=== PATIENT | male | born 1960 | race Caucasian/White ===

== ENCOUNTER 2018-08-29 10:52 | Outpatient (CLI) | payer OTHER ==
[2018-08-29] MEDS ORDERED: Iopamidol 370 76% 100 ML VIAL ONE (11:31)
--- NOTE | 2018-08-29 11:45 | CT ---
CT abdomen and pelvis with IV contrast. Oral contrast was administered. INDICATIONS: Anterior abdominal wall hernia COMPARISON: None FINDINGS: There is a pleural-based nodular density in the lateral right lung base measuring 1.0 cm. This may re present pleural-based atelectasis however follow-up is recommended. Liver, spleen, and pancreas appear unremarkable. Small gallstone seen in the neck of the gallbladder. There is a small fixed sliding diaphragmatic hernia. Adrenal glands appear normal. Kidneys appear unremarkable. Collecting structures and urinary bladder appear unremarkable. Small bowel loops are normal caliber and exhibit normal fold pattern. Colon is unremarkable. Aorta is normal caliber. No evidence of retroperitoneal or mesenteric adenopathy. Pelvic structures appear unremarkable. There is a large anterior abdominal wall hernia. Anterior abdominal wall defect measures 10 cm width. Large hernia sac into the subcutaneous tissues measures 24 cm width. Small bowel, large bowel, and mesentery herniate through this defect. There is no evidence of bowel obstruction or strangulation. There is a right inguinal hernia with dilated right inguinal ring. Mesenteric fat herniates into the right inguinal canal Osseous structures appear unremarkable. IMPRESSION: 1. Large anterior abdominal wall hernia as described 2. Small fixed sliding diaphragmatic hernia 3. Pleural-based nodular density in the right lung base, probably pleural based atelectasis. Follow-u p recommended. 4. Cholelithiasis 5. Right inguinal hernia
[2018-08-29 12:24] LABS: #Basophils 0.1 thou/uL (0.0-0.2); #Eosinphils 0.3 thou/uL (0.0-0.7); #Monocytes 0.4 thou/uL (0.11-0.59); #Neutrophils 2.7 thou/uL (1.40-6.50); %Eosinophils 5.6 % (0.0-10.0); %Lymphocytes 36.7 % (21.0-51.0); %Monocytes 7.2 % (0.0-10.0); %Neutrophils 49.6 % (42.0-75.0); Hemoglobin 13.4 g/dL (14.0-18.0); Mean Corpuscular HGB CONC 33.4 g/dL (32.0-36.0); Mean Corpuscular Hemoglobin 29.9 pg (27.0-31.0); Mean Corpuscular Volume 89.7 fL (78.0-98.0); Mean Platelet Volume 6.8 fL (7.4-10.4); Platelet Count 202 thou/uL (130-400); RBC Distribution Width 11.8 % (11.5-14.5); Red Blood Cell (RBC) Count 4.48 mill/uL (4.70-6.10); White Blood Cell (WBC) Count 5.4 thou/uL (4.8-10.8)
[2018-08-29 12:43] LABS: Anion Gap 10 mmol/L (10-20); BUN (Urea Nitrogen) 9 mg/dL (8.4-25.7); Calc. Creatinine Clearance 0 mL/min (70-130); Calcium 8.8 mg/dL (7.8-10.44); Carbon Dioxide 27 mmol/L (22-29); Chloride 102 mmol/L (98-107); Estimated GFR-MDRD Greater than 90; Glucose 95 mg/dL (70-105); Sodium 135 mmol/L (136-145)
== END 2018-08-29 10:53 | disposition home or self-care (01) ==
LOC: CT 10:52
PROVIDERS: ATTEND Specialist
DX: Z01.818 Encounter for other preprocedural examination (principal); K43.2 Incisional hernia without obstruction or gangrene; K43.9 Ventral hernia without obstruction or gangrene; K44.9 Diaphragmatic hernia without obstruction or gangrene; K40.90 Unilateral inguinal hernia, without obstruction or gangrene, not specified as recurrent; K80.20 Calculus of gallbladder without cholecystitis without obstruction; R91.1 Solitary pulmonary nodule
CPT/HCPCS: 36415; 74177; 80048; 85025; 93005; 93010

== ENCOUNTER 2018-09-04 16:21 | Observation (INO) | payer OTHER ==
[~2018-09-04 16:21] MED LIST: ISOVUE-370 76%-LOCM 1 ML ONE
[2018-09-04] MEDS ORDERED: cefTRIAXone\\ROCEPHIN 1 GM VIAL ONE ×2 (19:14)
[2018-09-04 19:37] LABS: #Basophils 0.1 thou/uL (0.0-0.2); #Eosinphils 0.2 thou/uL (0.0-0.7); #Lymphocytes 2.1 thou/uL (1.20-3.40); #Monocytes 0.6 thou/uL (0.11-0.59); #Neutrophils 4.9 thou/uL (1.40-6.50); %Basophils 0.7 % (0.0-1.0); %Eosinophils 2.3 % (0.0-10.0); %Lymphocytes 26.8 % (21.0-51.0); %Monocytes 7.4 % (0.0-10.0); %Neutrophils 62.9 % (42.0-75.0); Hemoglobin 13.9 g/dL (14.0-18.0); Mean Corpuscular HGB CONC 33.9 g/dL (32.0-36.0); Mean Corpuscular Hemoglobin 30.2 pg (27.0-31.0); Mean Corpuscular Volume 89.1 fL (78.0-98.0); Platelet Count 194 thou/uL (130-400); RBC Distribution Width 11.9 % (11.5-14.5); Red Blood Cell (RBC) Count 4.59 mill/uL (4.70-6.10); White Blood Cell (WBC) Count 7.7 thou/uL (4.8-10.8)
[2018-09-04 20:05] LABS: ALT (SGPT) 17 U/L (8-55); AST (SGOT) 9 U/L (5-34); Alkaline Phosphatase 125 U/L (40-150); Anion Gap 14 mmol/L (10-20); BUN (Urea Nitrogen) 9 mg/dL (8.4-25.7); Calc. Creatinine Clearance 0 mL/min (70-130); Calcium 9.3 mg/dL (7.8-10.44); Carbon Dioxide 26 mmol/L (22-29); Chloride 101 mmol/L (98-107); Estimated GFR-MDRD Greater than 90; Globulin 3.1 g/dL (2.4-3.5); Glucose 96 mg/dL (70-105); Lipase 6 U/L (8-78); Potassium 3.6 mmol/L (3.5-5.1); Protein, Total 7.1 g/dL (6.0-8.3); Sodium 137 mmol/L (136-145)
--- NOTE | 2018-09-04 20:43 | CT ---
CONTRAST ENHANCED CT IMAGES OF ABDOMEN AND PELVIS: HISTORY: Abdominal pain. IV contrast was given. Unfortunately, oral contrast was not administered. FINDINGS: The lung bases are unremarkable. There is a small hiatal hernia. There is a large right inguinal hernia which is fat in density without evidence of bowel herniation. Again, a large anterior abdominal wall hernia is seen with intraperitoneal fat, small bowel and colon herniating through the large anterior hernia. This is not significantly changed since the previous exam from 6 days earlier. Some of the small bowel loops appear to have air-fluid levels within them at this time. This may repr esent normal small bowel content versus possible obstruction. Surgical kevyn seen in the sigmorectal junction. IMPRESSION: Large anterior abdominal wall hernia without definite evidence of strangulation. The small bowel and colonic loops which are herniated through this defect appear to be of normal diameter. Some intraperitoneal mildly dilated loops of small bowel are present. Transcribed Date/Time: 09/04/2018 9:23 PM
--- NOTE | 2018-09-04 21:39 | RAD ---
2 views left forearm. HISTORY: Pain evaluate for foreign body AP and lateral views left forearm obtained. No evidence of fractures, subluxations or bony lesions seen. IMPRESSION: normal 2 views left forearm.
[2018-09-04] MEDS ORDERED: Acetaminophen 650 MG Suppository PR PRN (21:56)
[2018-09-04] MEDS ORDERED: Ondansetron PF 4 MG/2 ML Vial IVP PRN (21:56)
[2018-09-04] MEDS ORDERED: Ondansetron ODT 4 MG TAB PO PRN (21:56)
[2018-09-04] MEDS ORDERED: Acetaminophen 325 MG TAB PO PRN (21:56)
[2018-09-04] MEDS ORDERED: Sodium Chloride 0.9% 1,000 ML IV SCH (22:15)
[2018-09-04 22:34] VITALS: BMI 34.5
[2018-09-04] MEDS: Morphine ER 15 MG TAB PO PRN (23:45)
[2018-09-04] MEDS: Piperacillin/Tazobactam 3.375 GM in Sodium Chloride 0.9% 100 ML IVPB SCH (23:50)
[2018-09-05] MEDS: Piperacillin/Tazobactam 3.375 GM in Sodium Chloride 0.9% 100 ML IVPB SCH ×2 (05:00→12:00)
[2018-09-05] MEDS ORDERED: Vancomycin HCl 1.75 GM in Sodium Chloride 0.9% 500 ML IVPB SCH (06:00)
[2018-09-05 06:20] LABS: Anion Gap 12 mmol/L (10-20); BUN (Urea Nitrogen) 7 mg/dL (8.4-25.7); Calc. Creatinine Clearance 175 mL/min (70-130); Calcium 8.4 mg/dL (7.8-10.44); Carbon Dioxide 22 mmol/L (22-29); Chloride 107 mmol/L (98-107); Estimated GFR-MDRD Greater than 90; Glucose 78 mg/dL (70-105); Potassium 3.8 mmol/L (3.5-5.1); Sodium 137 mmol/L (136-145)
[2018-09-05 06:29] LABS: Eosinophils 5 % (0-10); Hemoglobin 12.3 g/dL (14.0-18.0); Lymphocytes 43 % (21-51); MDiff Complete? YES; Mean Corpuscular HGB CONC 32.8 g/dL (32.0-36.0); Mean Corpuscular Hemoglobin 30.5 pg (27.0-31.0); Mean Corpuscular Volume 92.8 fL (78.0-98.0); Mean Platelet Volume 7.3 fL (7.4-10.4); Monocytes 6 % (0-10); Neutrophil 46 % (42-75); Platelet Count 186 thou/uL (130-400); RBC Distribution Width 12.1 % (11.5-14.5); Red Blood Cell (RBC) Count 4.02 mill/uL (4.70-6.10); White Blood Cell (WBC) Count 5.4 thou/uL (4.8-10.8)
[2018-09-05] MEDS: Morphine ER 15 MG TAB PO PRN ×2 (08:17→13:10)
--- NOTE | 2018-09-05 08:27 | HP ---
PRIMARY CARE DOCTOR: Dilip James MD CODE STATUS: Full code. TIME OF EVALUATION: 0930 hours. CHIEF COMPLAINT: Left arm swelling and abdominal pain. HISTORY OF PRESENT ILLNESS: This is a 57-year-old male patient with past medical history of abdominal hernia repair, came to the hospital after having swelling of his left upper arm after having a scratch from his dogs 7 days ago. The patient reported that he was doing well, but for the past 2 to 3 days he has been noticing that he has swelling in the left upper arm and redness, who reported having no fever although his arm was warm. He also has abdominal distention and tumor of the abdominal wall that is about . This is due to previous incisional hernia the patient has seen Dr. Tomas before as outpatient, had some plan on seeing him this Tuesday, but he has too much pain that he decided to come to the hospital for that reason. CAT scan was done which shows some small bowel loop dilation, possible initial stage of small bowel obstruction. Dr. Tomas is being consulted from ER, we will follow recommendations. We will also do a CAT scan of the left arm to rule out any abscess. The patient reported that he saw a collection of pus in the deep space of his skin. For now, we will cover with antibiotics. Symptoms were reported as moderate. No alleviating factors. REVIEW OF SYSTEMS: CONSTITUTIONAL: No fever, chills, or generalized weakness. RESPIRATORY: No cough, sputum production, or shortness of breath. CARDIOVASCULAR: No chest pain or palpitation. GASTROINTESTINAL: No nausea. No vomiting or diarrhea. The patient has no abdominal pain, abdominal distention. Abdominal wall tumor as described in HPI. BAG PATCHER: No dizziness, headache, or feeling lightheaded. GENITOURINARY: No burning on urination. EXTREMITIES: The patient has a left upper arm swelling with redness, increase of local temperature, decreased range of motion due to symptoms. PAST MEDICAL HISTORY: As mentioned in the HPI. PAST SURGICAL HISTORY: The patient has left ankle surgery, disk fusion in the back, surgical history of appendectomy, hernia repair, mesh repair of the same x3, bowel resection surgery, appendectomy, left hand and left arm surgeries for muscle detachment. PSYCHIATRIC HISTORY: No previous psych history. SOCIAL HISTORY: The patient is a former heroin abuser, abused methamphetamine. Former cigarette smoker, quit in 2018. Lives at home with his spouse. KNOWN ALLERGIES: Mustard oil. REPORTED MEDICATIONS: 1. . 2. ProAir HFA. 3. Morphine. 4. Tylenol with Codeine. 5. . 6. Flexeril. PHYSICAL EXAMINATION: VITAL SIGNS: On presentation, blood pressure 120/79 with heart rate 81, respiratory rate was 16, temperature 98.8, pain was 5, oxygen saturation 98% on room air. GENERAL APPEARANCE: The patient is alert, oriented, not in acute distress. HEENT: Eyes, normal conjunctivae. Moist oral mucosa. Anicteric. No JVD. RESPIRATORY: Bilateral air entry. No rales. No wheezes. Symmetric expansion. CARDIOVASCULAR: Normal rate, regular rhythm. No murmurs. No gallop. No edema. ABDOMEN: The patient has a distended abdomen with abdominal wall tumor of about diameter. It is soft with bowel sounds inside. MUSCULOSKELETAL: Baseline range of motion and strength. No tenderness. SKIN: Warm and intact. No pallor. No rash. No redness except for left upper extremity. EXTREMITIES: The patient has redness, swelling, local increase in temperature, decreased range of motion. Peripheral pulses are present. Capillary refill seems to be intact. NEURO: No evidence of any new focal weakness. Cranial nerves seem to be intact. PSYCH: The patient is in good mood. No anxiety. Optimal judgment. IMAGING: Abdomen and pelvis CT was done abdominal wall without definite evidence of strangulation, there are mobile colonic loops which are herniated through this defect, appear to be of normal diameter, some intraperitoneal, mildly dilated loops of small bowel present. Forearm x-ray was done. The patient has normal two views of the left forearm. LABORATORY DATA: Reviewed. The patient has white count 7.7, hemoglobin 13.9, MCV 89, platelet count 194. Sodium 137, potassium 3.6, chloride 101 carbon dioxide 26, anion gap 14, BUN 9, creatinine 0.8. GFR greater than 90, glucose 96. LFTs were negative. Albumin 4.0, globulin 3.1, lipase 6. ASSESSMENT AND PLAN: The patient will be placed in the hospital with following medical problems: 1. Abdominal pain secondary to hernia incarceration. Dr. Tomas has seen the patient in the past and has been consulted from the ER. We will follow recommendations. 2. Left upper arm cellulitis secondary to dog scratch. We will place the patient antibiotics, we will do a CT of the left upper extremity in the proper timing since the patient really got some , and we will continue with antibiotics and adjust treatment as per sensitivity of the cultures. 3. Deep venous thrombosis prophylaxis. Job ID: [id number]
[2018-09-05] MEDS ORDERED: Enoxaparin Sodium 40 MG/0.4 ML SYRINGE SC SCH (09:00)
--- NOTE | 2018-09-05 11:44 | CT ---
CT OF LEFT FOREARM PERFORMED WITH CONTRAST ENHANCEMENT: 09/05/18 HISTORY: Infection. Evaluation for abscess or deep infection of forearm. The edema changes begin within the subcutaneous tissues mainly posterior to the olecranon and extend s to the more distal forearm confined to the subcutaneous tissues without definite deep extension or signs of a defined abscess. Muscle planes appear well preserved without definitive muscle involvemen t. There is no signs of any elbow joint effusion. IMPRESSION: Cellulitis type changes. No signs of abscess collection. No joint involvement. POS: TPC
[2018-09-05] MEDS ORDERED: Amoxicillin/Potassium Clav 875 MG TAB PO SCH ×2 (12:30→21:00)
[2018-09-05] MEDS ORDERED: Clindamycin 150 MG CAP PO SCH (14:00)
[2018-09-05 15:51] VITALS: BP 99/58; TEMP 98.3
== END 2018-09-05 16:20 | disposition home or self-care (01) ==
LOC: ERS 16:21 → 2SW 21:25
PROVIDERS: ADMIT Hospitalist; ATTEND Hospitalist
DX: K43.0 Incisional hernia with obstruction, without gangrene (principal); K44.9 Diaphragmatic hernia without obstruction or gangrene; L03.114 Cellulitis of left upper limb; Z79.899 Other long term (current) drug therapy; Z87.891 Personal history of nicotine dependence
CPT/HCPCS: 36415; 74177; 80048; 80053; 83605; 83690; 85025; 87040; 96365; 96366; 96367; 96372; G0378; J0696; J1650; J2543; J3370; J3490; J7050; Q9966

== ENCOUNTER 2018-10-16 07:25 | Inpatient (IN) | payer OTHER ==
--- NOTE | 2018-10-10 09:42 | HP ---
HISTORY OF PRESENT ILLNESS: Jhonatan Monge is a 57-year-old male patient, tobacco cessation, 18 months ago, referred because of enlarged ventral hernia. The patient apparently lives in an , has some sort of climb stairs. Cardiology reports that he is able to walk a mile a day without any issues. He has seen his lens blocker, [facility] [place] for cardiac clearance. The patient's echo reveals normal LV function. He was cleared for surgery by Jon Gupta. The patient reports having a laparoscopic appendectomy in [place] followed by a laparoscopic left colon resection for diverticulitis, developed a small incisional hernia at the port site, repaired without mesh initially and then recurrent hernia repair with mesh. He then lost his insurance and his hernia enlarged with time. In the interim, he has been seen at [facility] and 2 CAT scans done in September, about a week apart. This reveals an incisional hernia defect 8-9 cm in diameter. He was also noted incidentally on that CT scan to have a small gallstone, right inguinal hernia and a small hiatal hernia. The patient has a history of reflux and takes PPIs 3-4 times a week. He has had esophageal stricture dilatations last performed 2 years ago in [place]. Plan is for attempted robot incisional hernia repair with mesh, acknowledging that there is a very high chance that an open procedure will be necessary. It is very likely needed to be observed in the hospital postoperatively. We would recommend a general anesthesia and a TAP block. The patient has BMI of 34, and I have talked to him about attempt to weight loss efforts. The patient is disabled from back problems. ALLERGIES: MUSTARD. SOCIAL HISTORY: Tobacco, none since 18 months ago. Alcohol, none. MEDICATIONS: 1. Tylenol. 2. Albuterol inhaler p.r.n. 3. Omeprazole. 4. Oxybutynin. 5. Colace. 6. Cyclobenzaprine. PAST MEDICAL HISTORY: Esophageal stricture, urethral stricture, , history of alcohol abuse. PAST SURGICAL HISTORY: Ankle surgery, back surgery, laparoscopic appendectomy, laparoscopic left colon resection in 2006, incisional hernia repair with mesh, recurrence in 2007, meatal dilatation, urethral stricture dilatation, February 2014, spinal surgery in 1993, finger amputation in 1988. REVIEW OF SYSTEMS: Ten-point noncontributory. PHYSICAL EXAMINATION: VITAL SIGNS: Weight 245 pounds, 5 foot 11, 34 BMI, 141/90, 82 heart rate, 99.7 degrees. HEAD EARS EYES, NOSE AND THROAT: Unremarkable. LUNGS: Clear to auscultation. CARDIAC: Rhythm without murmur or gallop. ABDOMEN: Soft. Large incisional hernia, upper abdomen protruding above the plantar surface of the abdomen. Right inguinal hernia noted on CAT scan. LABORATORY DATA: CBC on 09/05/2018, white count 5.4, hemoglobin 12.3. Sodium 137, potassium 3.8, BUN 7, creatinine 0.76. Liver function tests are normal. ASSESSMENT/PLAN: 1. Incisional hernia, recurrent. We will plan robotic mesh repair, but understanding that there is a good chance of open procedure may be necessary, component separation may be necessary, general anesthesia, TAP block recommended. Risks of infection, bleeding, reoperation, recurrence, hernia discussed. Other measures to minimize recurrence include further weight reduction. I have offered him referral to a hernia surgeon elsewhere. The patient states has had poor results with previous laparoscopic attempts and he understands he may have to have an open procedure. 2. Esophageal stricture, history of dilatations. 3. History of tobacco abuse, cessation for year and a half. 4. Mild obesity. 5. Chronic back pain. Job ID: [id number]
[2018-10-16] MEDS ORDERED: Ketorolac Tromethamine 30 MG/ML VIAL ONE (08:50)
[2018-10-16] MEDS ORDERED: Fentanyl 100 MCG/2 ML VIAL ONE ×5 (08:51→15:01)
[2018-10-16] MEDS ORDERED: Midazolam HCl 2 mg/2 ml Vial ONE (08:51)
[2018-10-16] MEDS ORDERED: Dexamethasone 4 mg/ml Vial ONE (08:51)
[2018-10-16 09:01] LABS: #Eosinphils 0.2 thou/uL (0.0-0.7); #Lymphocytes 1.4 thou/uL (1.20-3.40); #Monocytes 0.3 thou/uL (0.11-0.59); #Neutrophils 3.3 thou/uL (1.40-6.50); %Basophils 0.4 % (0.0-1.0); %Eosinophils 3.7 % (0.0-10.0); %Lymphocytes 26.6 % (21.0-51.0); %Monocytes 5.8 % (0.0-10.0); %Neutrophils 63.5 % (42.0-75.0); Hemoglobin 13.6 g/dL (14.0-18.0); Mean Corpuscular HGB CONC 33.4 g/dL (32.0-36.0); Mean Corpuscular Volume 89.9 fL (78.0-98.0); Mean Platelet Volume 7.2 fL (7.4-10.4); Platelet Count 188 thou/uL (130-400); RBC Distribution Width 11.9 % (11.5-14.5); Red Blood Cell (RBC) Count 4.54 mill/uL (4.70-6.10); White Blood Cell (WBC) Count 5.2 thou/uL (4.8-10.8)
[2018-10-16] MEDS ORDERED: Bupivacaine/Epinephrine 0.25% 30 ML VIAL ONE (09:19)
[2018-10-16 09:22] LABS: ALT (SGPT) 14 U/L (8-55); AST (SGOT) 8 U/L (5-34); Albumin 3.7 g/dL (3.5-5.0); Alkaline Phosphatase 113 U/L (40-150); Anion Gap 10 mmol/L (10-20); BUN (Urea Nitrogen) 9 mg/dL (8.4-25.7); Calc. Creatinine Clearance 168 mL/min (70-130); Calcium 8.5 mg/dL (7.8-10.44); Carbon Dioxide 24 mmol/L (22-29); Chloride 106 mmol/L (98-107); Estimated GFR-MDRD Greater than 90; Glucose 92 mg/dL (70-105); Protein, Total 6.7 g/dL (6.0-8.3); Sodium 136 mmol/L (136-145)
[2018-10-16] MEDS ORDERED: Bupivacaine HCl 0.5%/Epinephrine 1:200,000/PF 30 ml Vial ONE (11:15)
[2018-10-16] MEDS ORDERED: Ondansetron PF 4 MG/2 ML Vial ONE ×2 (11:21→14:35)
[2018-10-16] MEDS ORDERED: ePHEDrine 50 MG/ML VIAL ONE (11:21)
[2018-10-16] MEDS ORDERED: Dexamethasone 20 MG/5 ML VIAL ONE (11:21)
[2018-10-16] MEDS ORDERED: Glycopyrrolate 0.2 MG/ML 5 ML SYRINGE ONE (11:21)
[2018-10-16] MEDS ORDERED: Lidocaine 1% PF 5 ML VIAL ONE (11:21)
[2018-10-16] MEDS ORDERED: PROPOFOL 200 MG/20 ML VIAL ONE (11:21)
[2018-10-16] MEDS ORDERED: Rocuronium Bromide 10 MG/ML (10ML VIAL) ONE (11:21)
[2018-10-16] MEDS ORDERED: Ondansetron HCl/PF 4 MG/2 ML Vial IVP PRN (13:52)
[2018-10-16] MEDS ORDERED: Promethazine HCl 25 MG/ML VIAL SLOW IVP PRN (13:52)
[2018-10-16] MEDS ORDERED: Promethazine HCl 25 MG/ML VIAL IM PRN ×2 (13:52→15:50)
[2018-10-16] MEDS ORDERED: Lorazepam 2 MG/ML VIAL SLOW IVP PRN (13:54)
[2018-10-16] MEDS ORDERED: Ondansetron PF 4 MG/2 ML Vial IVP PRN ×2 (13:54→15:50)
[2018-10-16] MEDS ORDERED: hydrALAZINE 20 MG/ML VIAL SLOW IVP PRN (13:54)
--- NOTE | 2018-10-16 14:13 | EKG ---
Test Reason : PREOP Blood Pressure : / mmHG Vent. Rate : 052 BPM Atrial Rate : 052 BPM P-R Int : 122 ms QRS Dur : 096 ms QT Int : 478 ms P-R-T Axes : 006 018 035 degrees QTc Int : 444 ms Sinus bradycardia with sinus arrhythmia Otherwise normal ECG Confirmed by LEROY THOMPSON ([id number]) on 10/16/2018 2:13:25 PM Referred By: LILLY Confirmed By:LEROY THOMPSON
[2018-10-16] MEDS ORDERED: HYDROmorphone 2 MG/ML VIAL ONE (15:23)
[2018-10-16] MEDS ORDERED: diphenhydrAMINE 25 MG CAP PO PRN (15:50)
[2018-10-16] MEDS ORDERED: diphenhydrAMINE 50 MG/ML VIAL IM PRN (15:50)
[2018-10-16] MEDS ORDERED: diphenhydrAMINE 50 MG/ML VIAL IVP PRN (15:50)
[2018-10-16] MEDS ORDERED: Naloxone HCl 0.4 mg/ml Vial IV PRN (15:50)
[2018-10-16] MEDS ORDERED: HYDROmorphone 10 mg/100 ml CADD IVPB PRN (15:50)
[2018-10-16] MEDS ORDERED: Zolpidem Tartrate 5 MG TAB PO PRN (15:50)
[2018-10-16] MEDS ORDERED: Communication Order-Pharmacy FS SCH (16:00)
[2018-10-16] MEDS ORDERED: CEFAZOLIN 2 GM in Premix Bag 1 BAG IVPB SCH (17:00)
--- NOTE | 2018-10-16 17:26 | OP ---
DATE OF PROCEDURE: 10/16/2018 PREOPERATIVE DIAGNOSIS: Recurrent incisional hernia. POSTOPERATIVE DIAGNOSES: 1. Recurrent incisional hernia. 2. Adhesions from prior surgery. 3. Small bowel tightly into the very large hernia sac. PROCEDURES PERFORMED: 1. Robotic lysis of adhesions, converted to a laparotomy with lysis of adhesions. 2. Small bowel resection. 3. Primary anastomosis. 4. Complex incisional hernia repair with TAR hernia repair (transabdominal rectus release) with polypropylene mesh reinforcement, 10 cm. ANESTHESIA: General, TAP block. DESCRIPTION OF PROCEDURE: The patient was taken to the operating room, where under general anesthesia, a Newell catheter was placed (urethral stricture). An incision was made in the left lateral subcostal, pneumoperitoneum to 15 mmHg obtained with a Veress needle, replacing with an 8 port, placing the video laparoscope, and placing remainder of the ports under laparoscopic visualization. The far left lateral mid abdominal incision made, another 11 mm balloon port placed. Left lower quadrant lateral incision made and another 8-mm port placed. The robot was docked. Robotic hernia repair undertaken, taken down adhesions from the abdominal wall. Small bowel adhesions and the small bowel traveled into the incisional hernia and was tightly adherent to the hernia sac, which was very large. Robotic lysis of adhesions undertaken, but it was so tightly adherent to the hernia sac. Then, the open procedure was necessary. Incision was made through the midline from below the xiphoid to below the umbilicus, skin and subcutaneous tissue, entering the hernia sac, excising the hernia sac through the fascial edges, freeing the remainder of the small bowel adhesions from the hernia sac. The vascular segment of small bowel was resected about 8 inches. Mesentery divided with the LigaSure and a [id number] anastomosis was created with a MEHRAN 75 technique, fired the stapler, removing the small bowel segments, submitted to Pathology. Anastomosis was reinforced with interrupted Lembert suture of 3-0 silk. Mesenteric defect closed with 3-0 silk sutures. Gloves and instruments changed. Attention was then turned to the hernia repair. Old mesh was removed. A TAR type procedure was undertaken as the defect was about 10 cm. Fascia opened just a centimeter off the midline and the rectus muscle identified and this was opened throughout the length on both sides. Rectus muscle was dissected free from the posterior fascia laterally. Neurovascular bundles identified and preserved as the fascia was incised and the lateral rectus sheath and transversalis fibers identified, divided with cautery from left medial subcostal to below the umbilicus. Once this was accomplished on both sides, good hemostasis noted. Sponge and needle counts were correct. Midline fascia posterior rectus sheath closed with continuous suture of #1 PDS. The mesh described was then configured, edges rounded, cut to size, and placed in the retrorectus space and extended out to the anterior axillary lines for the reinforcement of the visceral site. Once this was accomplished, the midline fascia was closed with continuous suture of #1 PDS. Good hemostasis was noted. Abdominal wall was irrigated. A #19 Gold JUAN drain placed through a stab incision in the right lower quadrant, brought into the subcutaneous tissues. The excess skin and hernia sac on both sides were excised. Good hemostasis noted. Wound irrigated. Subcutaneous tissue was approximated with 3-0 Monocryl, skin with subdermal 4-0 Monocryl, and [place] glue applied. The patient tolerated the procedure well. Job ID: [id number]
[2018-10-16] MEDS: Ketorolac Tromethamine 30 MG/ML VIAL IVP SCH ×2 (18:03→23:57)
[2018-10-16] MEDS: Lactated Ringer's 1,000 ML IV SCH (18:06)
[2018-10-16] MEDS: Acetaminophen 1,000 MG in Premix Bag 1 BAG IVPB SCH (19:19)
[2018-10-16] MEDS: Ondansetron ODT 4 MG TAB PO PRN (19:21)
[2018-10-16] MEDS: Enoxaparin Sodium 40 MG/0.4 ML SYRINGE SC SCH (20:19)
[2018-10-16] MEDS: CEFAZOLIN 2 GM in Premix Bag 1 BAG IVPB SCH (21:42)
[2018-10-17] MEDS: Acetaminophen 1,000 MG in Premix Bag 1 BAG IVPB SCH ×3 (01:03→12:16)
[2018-10-17] MEDS: Lactated Ringer's 1,000 ML IV SCH ×2 (02:15→13:59)
[2018-10-17] MEDS: CEFAZOLIN 2 GM in Premix Bag 1 BAG IVPB SCH ×3 (05:13→22:27)
[2018-10-17] MEDS: Ketorolac Tromethamine 30 MG/ML VIAL IVP SCH ×4 (05:56→23:59)
[2018-10-17 06:00] LABS: #Lymphocytes 0.8 thou/uL (1.20-3.40); #Monocytes 0.6 thou/uL (0.11-0.59); #Neutrophils 6.5 thou/uL (1.40-6.50); %Eosinophils 0.1 % (0.0-10.0); %Lymphocytes 9.7 % (21.0-51.0); %Monocytes 7.1 % (0.0-10.0); Hemoglobin 11.5 g/dL (14.0-18.0); Mean Corpuscular Hemoglobin 29.9 pg (27.0-31.0); Mean Corpuscular Volume 90.8 fL (78.0-98.0); Mean Platelet Volume 7.1 fL (7.4-10.4); Platelet Count 160 thou/uL (130-400); Red Blood Cell (RBC) Count 3.83 mill/uL (4.70-6.10); White Blood Cell (WBC) Count 7.8 thou/uL (4.8-10.8)
[2018-10-17 06:17] LABS: Anion Gap 10 mmol/L (10-20); BUN (Urea Nitrogen) 14 mg/dL (8.4-25.7); Calc. Creatinine Clearance 155 mL/min (70-130); Carbon Dioxide 25 mmol/L (22-29); Chloride 103 mmol/L (98-107); Estimated GFR-MDRD Greater than 90; Glucose 115 mg/dL (70-105); Sodium 134 mmol/L (136-145)
[2018-10-17] MEDS ORDERED: traMADol HCl 50 MG TAB PO PRN (10:34)
--- NOTE | 2018-10-17 10:56 | PRG ---
DATE OF SERVICE: 10/17/2018 SUBJECTIVE: Mr. Sabas Monge is doing well after a TAR procedure converted from robotic adhesiolysis to an open procedure with mesh repair of his recurrent incisional hernia. The patient is doing well. He has been up and walking last night, not up yet today. Clear liquid diet has been ordered, which he has not received yet. He denies having any nausea or vomiting. OBJECTIVE: VITAL SIGNS: Temperature 97.6 degrees, heart rate 58, blood pressure 100/66. LUNGS: Clear to auscultation. CARDIAC: Regular rate and rhythm without murmur or gallop. ABDOMEN: Soft. Occasional bowel sounds. Wound looks good. His JUAN drain is serosanguineous. It is in the subcutaneous tissues, away from the mesh. LABORATORY DATA: This morning, his white count is 7, hemoglobin 11.5. Basic metabolic profile normal. ASSESSMENT AND PLAN: The patient will be advanced to full liquids this evening per nursing discretion. He should be out of bed at least 3 to 6 times a day, ambulating the hallways 3 to 6 times a day. We can TKO his IV fluids when he is tolerating his diet. Hope to discontinue his REIKI PRACTITIONER tomorrow if he is tolerating his diet and anticipate discharge home in the next day or two. Job ID: [id number]
[2018-10-17 18:11] VITALS: BMI 34.8
[2018-10-17] MEDS: Enoxaparin Sodium 40 MG/0.4 ML SYRINGE SC SCH (20:53)
[2018-10-18] MEDS: Lactated Ringer's 1,000 ML IV SCH ×2 (00:02→13:04)
[2018-10-18] MEDS: CEFAZOLIN 2 GM in Premix Bag 1 BAG IVPB SCH ×2 (05:38→14:30)
[2018-10-18] MEDS: Ketorolac Tromethamine 30 MG/ML VIAL IVP SCH ×2 (05:39→12:38)
[2018-10-18] MEDS ORDERED: Cyclobenzaprine 10 MG TAB PO PRN (06:55)
[2018-10-18] MEDS ORDERED: Acetaminophen/Codeine 30-300mg Tablet PO PRN (06:55)
[2018-10-18] MEDS ORDERED: HYDROcodone/Acetaminophen 5/325 mg Tablet PO PRN ×2 (08:00)
[2018-10-18] MEDS: Morphine ER 15 MG TAB PO PRN ×2 (08:53→19:10)
[2018-10-18] MEDS: Polyethylene Glycol 3350 17 GM Packet PO SCH (09:38)
[2018-10-18] MEDS ORDERED: HYDROcodone/Acetaminophen 10/325 mg Tablet PO PRN (16:03)
--- NOTE | 2018-10-18 16:22 | PRG ---
DATE OF SERVICE: 10/18/2018 SUBJECTIVE: Mr. Monge is doing well today, he is status post TAR mesh repair, recurrent incisional hernia with resection of a hernia sac, placement of a drain in the subcutaneous tissue, and resection of old mesh. The patient has a sheet of mesh retrorectus from anterior axillary line to anterior axillary line. He has an abdominal binder in place. Today, his SAW TAILER has been discontinued. He is saline locked. At home, Dr. James prescribes MS Contin p.r.n. pain 15 mg p.o. q.i.d. p.r.n. He has some of these at home, but is almost out of them. I have asked him to see Dr. James if he needs any more. The patient takes Tylenol No. 3 occasionally at home. We have talked about his pain management. He is on chronic pain medication for chronic back pain and ankle problems. I will prescribe [place] 10/325 and I have left a prescription on the chart #50. The patient has a subcutaneous drain 95 mL in last 24 hours. OBJECTIVE: LUNGS: Clear to auscultation. CARDIAC: Regular rate and rhythm without murmur or gallop. ABDOMEN: Soft. Good bowel sounds. Nontender. He is passing flatus. He has not yet had a bowel movement. LABORATORY DATA: Yesterday's hemoglobin was 11.5. Yesterday's electrolytes were normal. Labs are not recheck today. ASSESSMENT AND PLAN: Overall, doing well status post complicated hernia repair. Plan is for him to be discharged home in the next day or two on oral analgesics. We will plan to discharge him with [place] 10/325 to take as needed at home and I have left a prescription on the chart for #50. He will be instructed on drain care. He has asked me how to measure his drain output. We will ask Nursing to instruct him on drain measurements and whenever his drainage is less than 15 or 20 mL of JUAN drainage a day, he can take out his drain at home. He can follow up with me in a week and a half. Dr. Andres is covering for the next few days. He can take ibuprofen as needed at home as well as resume his Flexeril. His IV fluids have been discontinued. He should avoid lifting over 25 to 30 pounds for 8 weeks. Job ID: [id number]
[2018-10-18] MEDS: HYDROcodone/Acetaminophen 10/325 mg Tablet PO PRN (16:59)
[2018-10-18] MEDS: Ibuprofen 600 MG TAB PO PRN (19:10)
[2018-10-18] MEDS: Enoxaparin Sodium 40 MG/0.4 ML SYRINGE SC SCH (21:25)
[2018-10-19] MEDS: Morphine ER 15 MG TAB PO PRN ×2 (04:05→22:04)
[2018-10-19] MEDS: Polyethylene Glycol 3350 17 GM Packet PO SCH (08:36)
[2018-10-19] MEDS: HYDROcodone/Acetaminophen 10/325 mg Tablet PO PRN ×3 (08:36→17:05)
[2018-10-19] MEDS ORDERED: Bisacodyl 10 MG SUPP PR PRN (18:43)
--- NOTE | 2018-10-19 18:43 | PDOC.GSPN ---
Surgery Progress Note: Subj - Subjective Narrative: Patient is feeling all right but still having a lot of trouble getting around. He is concerned about whether he will be able to get in and out of his trailer and bed. There is no room in his trailer to use a walker. He still hasn't had a bowel movement despite laxative use. He is not having any nausea but is feeling bloated. His incisions look good. He is mildly distended.. Assessment/plan: Status post open hernia repair and small bowel resection with postoperative ileus. I'm going to order suppositories for him, with enemas if this does not work. Once he is a little more mobile and his bowel function has returned he should be ready to go home. Surgery Progress Note: Obj - Vital signs Vital signs: Vital Signs - Most Recent Temp Pulse Resp BP Pulse Ox 98.5 F 102 H 16 134/78 94 L 10/19/18 07:48 10/19/18 07:48 10/19/18 07:48 10/19/18 07:48 10/19/18 07:48 Surgery Progress Note: Results - Labs Result Diagrams: 10/17/18 05:50 10/17/18 05:50
[2018-10-19] MEDS: Enoxaparin Sodium 40 MG/0.4 ML SYRINGE SC SCH (21:51)
[2018-10-20] MEDS: Morphine ER 15 MG TAB PO PRN ×2 (04:06→21:47)
[2018-10-20] MEDS: Polyethylene Glycol 3350 17 GM Packet PO SCH (09:39)
[2018-10-20] MEDS: traMADol HCl 50 MG TAB PO PRN ×2 (09:50→17:43)
[2018-10-20] MEDS: Ibuprofen 600 MG TAB PO PRN ×2 (09:51→17:42)
[2018-10-20] MEDS: Acetaminophen 500 MG TAB PO PRN ×2 (09:51→17:42)
[2018-10-20] MEDS: Ondansetron ODT 4 MG TAB PO PRN (21:47)
[2018-10-20] MEDS: Enoxaparin Sodium 40 MG/0.4 ML SYRINGE SC SCH (21:51)
--- NOTE | 2018-10-20 23:53 | PDOC.GSPN ---
Surgery Progress Note: Subj - Subjective Narrative: Patient continues to slowly improve it is still very hesitant about his ability to climb the stairs into his trailer and into and out of bed on his own. He has been progressing with physical therapy. He did have a small bowel movement but never got the suppository which I ordered. He still feels rather bloated. His abdominal incisions look good. His abdomen is nondistended and bowel sounds are still somewhat diminished. Assessment/plan: Status post hernia repair with diminished mobility. Ileus is likely due to decreased activity and pain medications and seems to be improving somewhat. We'll continue to work with him on this and on his mobility. Have asked occupational therapy and rehabilitation to evaluate the patient is well. He might benefit from a short inpatient rehabilitation stay. Surgery Progress Note: Obj - Vital signs Vital signs: Vital Signs - Most Recent Temp Pulse Resp BP Pulse Ox 98.0 F 74 18 112/65 95 10/20/18 19:54 10/20/18 19:54 10/20/18 19:54 10/20/18 19:54 10/20/18 19:54 Surgery Progress Note: Results - Labs Result Diagrams: 10/17/18 05:50 10/17/18 05:50
[2018-10-21] MEDS: Ibuprofen 600 MG TAB PO PRN (07:52)
[2018-10-21] MEDS: traMADol HCl 50 MG TAB PO PRN (07:53)
[2018-10-21] MEDS: Acetaminophen 500 MG TAB PO PRN (07:55)
[2018-10-21] MEDS: Polyethylene Glycol 3350 17 GM Packet PO SCH (08:00)
[2018-10-21 09:18] VITALS: BP 119/71; TEMP 97.9
== END 2018-10-21 18:43 | disposition home or self-care (01) | DRG 330 ==
LOC: SDC 07:25 → ONC 17:07
PROVIDERS: ADMIT Specialist; ATTEND Specialist
PROC: 0DB80ZZ Excision of Small Intestine, Open Approach (ICD-10-PCS; principal; 2018-10-16)
PROC: 0WUF0JZ Supplement Abdominal Wall with Synthetic Substitute, Open Approach (ICD-10-PCS; 2018-10-16)
PROC: 0DJW4ZZ Inspection of Peritoneum, Percutaneous Endoscopic Approach (ICD-10-PCS; 2018-10-16)
PROC: 8E0W0CZ Robotic Assisted Procedure of Trunk Region, Open Approach (ICD-10-PCS; 2018-10-16)
DX: K43.0 Incisional hernia with obstruction, without gangrene (principal); K56.7 Ileus, unspecified; K21.9 Gastro-esophageal reflux disease without esophagitis; E66.8 Other obesity; G89.29 Other chronic pain; Z90.49 Acquired absence of other specified parts of digestive tract; Z89.029 Acquired absence of unspecified finger(s); Z68.34 Body mass index [BMI] 34.0-34.9, adult
CPT/HCPCS: 36415; 80048; 80053; 85025; 88305; 88307; 93005; C1781; J0131; J0670; J0690; J1100; J1170; J1650; J1885; J2001; J2250; J2405; J2704; J3010; J3490; Q0162

== ENCOUNTER 2018-12-04 20:30 | Outpatient (CLI) | payer OTHER | END 2018-12-04 20:31 | disposition home or self-care (01) | LOC: SLEEPLAB 20:30 | PROVIDERS: ATTEND Internal Medicine | DX: G47.33 Obstructive sleep apnea (adult) (pediatric) (principal); G47.9 Sleep disorder, unspecified; G47.00 Insomnia, unspecified; I51.9 Heart disease, unspecified; R06.83 Snoring; J44.9 Chronic obstructive pulmonary disease, unspecified; G47.10 Hypersomnia, unspecified; R00.1 Bradycardia, unspecified; I27.20 Pulmonary hypertension, unspecified | CPT/HCPCS: 95810 ==

== ENCOUNTER 2019-01-12 07:23 | Day surgery (SDC) | payer OTHER ==
--- NOTE | 2019-01-11 10:49 | HP ---
HISTORY OF PRESENT ILLNESS: Jhonatan Hernandez, 58-year-old male patient, tobacco cessation over a year ago. Continues not to smoke, status post robotic, converted to open incisional hernia repair, small bowel resection, TAR mesh repair of complicated incisional hernia, 10/16/2018. The patient has done well postoperatively. His hernia repair remains intact. The patient complains of a right inguinal hernia. Plan is to repair that as an open fashion with mesh. He understands risks and benefits, infection, bleeding, reoperation, recurrence, and he consents. The patient also reports problems with reflux, well controlled, on omeprazole, taken daily with breakthrough reflux symptoms once or twice per week. He occasionally has swallowing problems. He has had food turkey lodged requiring extraction more than a year ago. His last upper endoscopy was in [place] a year ago. The patient denies any dysphagia at this time. Plan is to refer him to Gastroenterology in the future for endoscopic evaluation, surveillance and make further recommendations pending that. He reports hiatal hernia and wants to have that repaired. I have told him we will have to wait till GI evaluation for further recommendations and appropriateness of repair. His reflux symptoms are well controlled medically. MEDICATIONS: 1. Tylenol. 2. Albuterol. 3. . 4. Oxybutynin. 5. Colace. 6. Cyclobenzaprine. PAST MEDICAL HISTORY: 1. Urethral stricture, PTSD, alcohol abuse, incisional hernia status post repair, EDITH, undergoing evaluation by his conservation technician recently. 2. Cardiology, preoperative evaluation for his incisional hernia repair, negative stress test. 3. Undergoing evaluation for a CPAP now. PAST SURGICAL HISTORY: Ankle surgery; multiple lumbar disk surgeries; appendectomy with bowel resection in 2006; incisional hernia repair with mesh, 2007, due to recurrent cystoscopy, meatal dilatation, urethral stricture dilatation over guidewire February 2014, multiple annular penile strictures; spinal surgery in 1993; skin grafts in 1993; finger amputation in 1988; robotic incisional repair converted to open, TAR repair 10/16/2018. REVIEW OF SYSTEMS: Noncontributory. PHYSICAL EXAMINATION: VITAL SIGNS: Weight 235 pounds, 71 inches, 32 BMI, blood pressure 131/69, heart rate 60, temperature 99 degrees. HEAD, EYES, EARS, NOSE, AND THROAT: Unremarkable. LUNGS: Clear to auscultation. CARDIAC: Regular rate and rhythm. No murmur or gallop. ABDOMEN: Soft. Intact incisional hernia repair. Evaluation of groins revealed testicles are normal bilaterally. Left groin without hernia. Right groin reveals a hernia on standing, enlarged on Valsalva. EXTREMITIES: Unremarkable. No ankle edema. ASSESSMENT AND PLAN: 1. Right inguinal hernia. Plan mesh repair as outpatient. We will not attempt robotic due to recent abdominal surgery, open. 2. History of possible hiatal hernia, reflux, well controlled medically on omeprazole. The patient is requesting surgical repair, but I have told him they need to see Gastroenterology for further evaluation to see if there is anything necessary to repair. He will need reflux surveillance with upper endoscopy. 3. Sleep apnea. Undergoing CPAP titration moderate by sleep study. 4. Cardiac clearance recently. Job ID: [id number]
[2019-01-11 15:11] VITALS: BMI 32.6
[2019-01-12] MEDS ORDERED: Ketorolac Tromethamine 30 MG/ML VIAL ONE (07:53)
[2019-01-12 08:07] LABS: #Eosinphils 0.3 thou/uL (0.0-0.7); #Lymphocytes 1.6 thou/uL (1.20-3.40); #Monocytes 0.5 thou/uL (0.11-0.59); %Basophils 0.6 % (0.0-1.0); %Eosinophils 5.7 % (0.0-10.0); %Lymphocytes 29.4 % (21.0-51.0); %Monocytes 8.8 % (0.0-10.0); %Neutrophils 55.5 % (42.0-75.0); Hemoglobin 13.5 g/dL (14.0-18.0); Mean Corpuscular HGB CONC 33.1 g/dL (32.0-36.0); Mean Corpuscular Hemoglobin 28.9 pg (27.0-31.0); Mean Corpuscular Volume 87.2 fL (78.0-98.0); Mean Platelet Volume 7.2 fL (7.4-10.4); Platelet Count 208 thou/uL (130-400); RBC Distribution Width 13.2 % (11.5-14.5); Red Blood Cell (RBC) Count 4.69 mill/uL (4.70-6.10); White Blood Cell (WBC) Count 5.4 thou/uL (4.8-10.8)
[2019-01-12] MEDS ORDERED: Bupivacaine HCl 0.5%/Epinephrine 1:200,000/PF 30 ml Vial ONE (08:24)
[2019-01-12] MEDS ORDERED: Lidocaine 2% PF 5 ML VIAL ONE (08:25)
[2019-01-12] MEDS ORDERED: Fentanyl 100 MCG/2 ML VIAL ONE ×3 (08:26→09:57)
[2019-01-12 08:29] LABS: Anion Gap 10 mmol/L (10-20); BUN (Urea Nitrogen) 9 mg/dL (8.4-25.7); Calc. Creatinine Clearance 151 mL/min (70-130); Calcium 8.6 mg/dL (7.8-10.44); Carbon Dioxide 26 mmol/L (22-29); Chloride 102 mmol/L (98-107); Estimated GFR-MDRD Greater than 90; Glucose 85 mg/dL (70-105); Potassium 3.7 mmol/L (3.5-5.1); Sodium 134 mmol/L (136-145)
[2019-01-12] MEDS ORDERED: Meperidine HCl/PF 25 MG/ML VIAL ONE (10:10)
--- NOTE | 2019-01-12 10:31 | OP ---
DATE OF PROCEDURE: 01/12/2019 PREOPERATIVE DIAGNOSES: Right inguinal hernia, recent laparotomy. POSTOPERATIVE DIAGNOSES: Right inguinal hernia, recent laparotomy. PROCEDURE PERFORMED: PHS mesh repair, right inguinal hernia, direct. ANESTHESIA: General, local 0.5% Marcaine with epinephrine 30 mL. DESCRIPTION OF PROCEDURE: The patient was taken to the operating room, where under general anesthesia, abdomen was prepared with ChloraPrep and draped in routine fashion. Ioban was used. Incision was made in the right groin, carried down to skin and subcutaneous tissue. The external oblique external ring, dissecting the cord structures with a [place] drain. There was a large direct inguinal hernia defect medially, dissected free, excising abundant, redundant fatty tissue with the cautery. Hernia sac closed with 0 Nurolon and PHS mesh underlay portion placed in the preperitoneal space. Onlay portion in the floor of the canal extending the extended portion superiorly and the inguinal canal. Cord structures had been dissected free, and an indirect hernia sac was not present. Slit made laterally in the mesh to the cylindrical connecting ring and mesh re-secured laterally to Poupart ligament with 6-0 Nurolon, inferiorly to Jelani ligament with 0 Nurolon suture. Good hernia repair undertaken. A second 0 Nurolon suture used to approximate more inferior mesh to Poupart ligament. External oblique closed with 3-0 Monocryl, Camper's 3-0 Monocryl, skin with subdermal 4-0 Monocryl. Local anesthetic had been infiltrated in the space of the inguinal canal, space above and below Camper fascia, and the skin and subcutaneous tissue for postoperative pain control. [place] glue applied. The patient tolerated procedure well. Job ID: [id number]
[2019-01-12] MEDS ORDERED: PROPOFOL 200 MG/20 ML VIAL ONE (11:10)
[2019-01-12] MEDS ORDERED: Lidocaine 1% PF 5 ML VIAL ONE (11:10)
[2019-01-12] MEDS ORDERED: Ondansetron PF 4 MG/2 ML Vial ONE (11:10)
[2019-01-12] MEDS ORDERED: HYDROcodone/Acetaminophen 5/325 mg Tablet ONE (11:27)
== END 2019-01-12 13:21 | disposition home or self-care (01) ==
LOC: SDC 07:23
PROVIDERS: ATTEND Specialist
PROC: 0YU50JZ Supplement Right Inguinal Region with Synthetic Substitute, Open Approach (ICD-10-PCS; principal; 2019-01-12)
DX: K40.90 Unilateral inguinal hernia, without obstruction or gangrene, not specified as recurrent (principal); N35.919 Unspecified urethral stricture, male, unspecified site; K21.9 Gastro-esophageal reflux disease without esophagitis; G47.30 Sleep apnea, unspecified; Z79.899 Other long term (current) drug therapy; Z87.891 Personal history of nicotine dependence; Z88.8 Allergy status to other drugs, medicaments and biological substances; Z91.018 Allergy to other foods; Z98.890 Other specified postprocedural states; Z99.89 Dependence on other enabling machines and devices
CPT/HCPCS: 36415; 80048; 85025; C1781; J0131; J0670; J0690; J1885; J2001; J2175; J2405; J2704; J3010

== ENCOUNTER 2019-01-13 18:50 | Observation (INO) | payer OTHER ==
[2019-01-13 19:51] LABS: #Lymphocytes 1.5 thou/uL (1.20-3.40); #Monocytes 0.6 thou/uL (0.11-0.59); #Neutrophils 6.2 thou/uL (1.40-6.50); %Basophils 0.1 % (0.0-1.0); %Eosinophils 0.5 % (0.0-10.0); %Lymphocytes 17.6 % (21.0-51.0); %Neutrophils 74.8 % (42.0-75.0); Hemoglobin 12.2 g/dL (14.0-18.0); Mean Corpuscular HGB CONC 33.4 g/dL (32.0-36.0); Mean Corpuscular Hemoglobin 29.1 pg (27.0-31.0); Mean Corpuscular Volume 87.1 fL (78.0-98.0); Mean Platelet Volume 7.1 fL (7.4-10.4); Platelet Count 151 thou/uL (130-400); RBC Distribution Width 13.2 % (11.5-14.5); Red Blood Cell (RBC) Count 4.19 mill/uL (4.70-6.10); White Blood Cell (WBC) Count 8.4 thou/uL (4.8-10.8)
[2019-01-13 20:00] LABS: Bilirubin Negative (Negative); Blood, Urine Negative (Negative); Clarity Clear (Clear); Glucose, Urine (Dipstick) Normal (Negative); Leukocyte Negative Leu/uL (Negative); Nitrite Negative (Negative); Protein, Urine (Dipstick) Negative (Neg-Trace); Urobilinogen Normal mg/dL (Less than 2)
[2019-01-13 20:16] LABS: ALT (SGPT) Less than 7 U/L (8-55); AST (SGOT) 4 U/L (5-34); Albumin 3.3 g/dL (3.5-5.0); Alkaline Phosphatase 100 U/L (40-110); Anion Gap 10 mmol/L (10-20); BUN (Urea Nitrogen) 5 mg/dL (8.4-25.7); Bilirubin, Total 0.9 mg/dL (0.2-1.2); Calc. Creatinine Clearance 0 mL/min (70-130); Calcium 8.2 mg/dL (7.8-10.44); Carbon Dioxide 26 mmol/L (22-29); Chloride 100 mmol/L (98-107); Estimated GFR-MDRD Greater than 90; Globulin 2.9 g/dL (2.4-3.5); Glucose 98 mg/dL (70-105); Lipase 4 U/L (8-78); Potassium 3.4 mmol/L (3.5-5.1); Protein, Total 6.2 g/dL (6.0-8.3); Sodium 133 mmol/L (136-145)
--- NOTE | 2019-01-13 20:19 | RAD ---
AP CHEST: 01/13/19 HISTORY: Postop fever. FINDINGS/IMPRESSION: Heart size is upper normal. Mild atelectatic change in the left lung base which is confirmed on CT ab domen and pelvis. Lungs otherwise clear. POS: OFF
[2019-01-13] MEDS ORDERED: Ondansetron PF 4 MG/2 ML Vial ONE (20:22)
[2019-01-13] MEDS ORDERED: Morphine 4 MG/ML VIAL ONE (20:22)
--- NOTE | 2019-01-13 20:32 | CT ---
CT ABDOMEN AND PELVIS WITH IV CONTRAST: 01/13/19 INDICATIONS: Recent repair of anterior abdominal wall hernia. Fever. Comparison made to CT of 09/04/18. FINDINGS: Lung bases are clear. Liver, spleen and pancreas unremarkable. A small calcified gallstone in the neck of the gallbladder is again noted. Gallbladder wall is normal . There is no evidence of pericholecystic edema. There is a small sliding diaphragmatic hernia again noted which was described previously. Adrenal glands and kidneys unremarkable. There is mild distention of proximal and mid small bowel loops. Some of these proximal loops show mil d fluid and gas distention. More distal small bowel loops are normal caliber. Colon is unremarkable. There are inflammatory changes with numerous gas pockets seen in the right lower quadrant just beneat h the abdominal wall at the site of hernia repair. There is some fluid density in this region; howeve r, no evidence of loculated fluid or abscess collection. The numerous gas pockets could be postoperat warner in nature. There are numerous tiny gas pockets along the abdominal wall and into the subcutaneous tissues at the operative site on the right. The anterior abdominal wall hernia noted previously has been repaired. There appears to also have been a right inguinal hernia repair. There is abnormal dens ity and fluid within the right inguinal ring which may be postoperative. IMPRESSION: Postoperative changes seen in the lower right anterior abdominal wall and in the right lower quadrant . These inflammatory changes indents the anterior wall of the bladder on the right and there is mild bladder wall thickening at this location. Numerous extraluminal gas pockets at this site with strandi ng and some fluid density; however, no loculated fluid or abscess collection is seen. Fluid within th e inguinal canal with postoperative and inflammatory change. These changes may all be postoperative. I cannot exclude a developing infectious process. Recommend surgical consultation. POS: OFF
[2019-01-13] MEDS ORDERED: Sodium Chloride 0.9% 100 ML ONE (21:41)
[2019-01-13] MEDS ORDERED: Piperacillin/Tazobactam 4.5 GM VIAL ONE (21:41)
[2019-01-13] MEDS ORDERED: Calcium Carbonate 500 MG ChewTAB PO PRN (22:09)
[2019-01-13] MEDS ORDERED: hydrALAZINE 20 MG/ML VIAL SLOW IVP PRN (22:09)
[2019-01-13] MEDS ORDERED: Promethazine HCl 25 MG/ML VIAL IM PRN (22:09)
[2019-01-13] MEDS ORDERED: Cyclobenzaprine 10 MG TAB PO PRN (22:09)
[2019-01-13] MEDS ORDERED: Dextrose 5% in Water 1,000 ML IV PRN (22:09)
[2019-01-13] MEDS ORDERED: Ondansetron PF 4 MG/2 ML Vial IVP PRN (22:09)
[2019-01-13] MEDS ORDERED: Dextrose 50% Abboject 50 ML SYRINGE SLOW IVP PRN (22:09)
[2019-01-13] MEDS ORDERED: traMADol HCl 50 MG TAB PO PRN ×2 (22:09)
[2019-01-13] MEDS ORDERED: Acetaminophen 500 MG TAB PO PRN (22:09)
[2019-01-13] MEDS ORDERED: Mag-Al 1200 mg/1200 mg/30 ML UDCUP PO PRN (22:09)
[2019-01-13 23:35] VITALS: BMI 32.3
[2019-01-13] MEDS: Sodium Chloride 0.9% 1,000 ML IV SCH (23:47)
[2019-01-13] MEDS ORDERED: Morphine ER 15 MG TAB PO PRN (23:51)
[2019-01-13] MEDS: Ketorolac Tromethamine 30 MG/ML VIAL IVP SCH (23:57)
[2019-01-14] MEDS ORDERED: Acetaminophen 325 MG TAB PO SCH (01:00)
[2019-01-14] MEDS: HYDROcodone/Acetaminophen 10/325 mg Tablet PO PRN ×3 (01:03→09:39)
--- NOTE | 2019-01-14 03:12 | HP ---
REQUESTING PHYSICIAN: Dr. Gutierrez ATTENDING SURGEON: Dr. Collado. HISTORY OF PRESENT ILLNESS: The patient is a 58-year-old man who was discharged yesterday after undergoing right inguinal hernia repair. He states that since being discharged, he has had significant nausea, increasing pain, and felt feverish at which time he came to the emergency department where he underwent evaluation and examination and a repeat abdominal pelvic CT showed fluid and air collection in the right lower quadrant and by the scan, it was unable to determine if there was an infectious process ongoing. The patient was noted to have normal white count and his max temperature was 100.3 in the emergency department. We were asked to evaluate the patient for admission for observation. The patient's original surgeon is Dr. Tomas. ALLERGIES: NO KNOWN DRUG ALLERGIES. CURRENT MEDICATIONS: 1. Keflex. 2. Albuterol inhaler. 3. OxyContin. 4. Tylenol No.3. 5. Flexeril. PAST MEDICAL HISTORY: PVCs, chronic back pain, urethral stricture, EDITH, PTSD, alcohol abuse, history of heroin and methamphetamine abuse. PAST SURGICAL HISTORY: Ankle surgery, multiple lumbar disk surgeries, appendectomy, bowel resection, incisional hernia repair with mesh, urethral stricture dilation, skin grafts, finger amputation, incisional hernia repair converted to open. SOCIAL HISTORY: The patient denies tobacco, alcohol, or drug use at this time. The patient lives at home with his spouse. 10-point review of systems is negative as otherwise stated. PHYSICAL EXAMINATION: VITAL SIGNS: Blood pressure 116/73, heart rate 80, respirations 16, oxygen saturation is 95% on room air, and temperature is 98.4. HEENT: Head is normocephalic and atraumatic. Eyes; extraocular motion is intact. PERRLA bilaterally. Ears are atraumatic without discharge. Oropharynx is clear. NECK: Nontender. Trachea is midline. CHEST: Clear to auscultation with good inspiratory and expiratory effort. HEART: Regular rate and rhythm. ABDOMEN: Shows some mild distention. The patient does confirm that he feels somewhat bloated. His incision has area of erythema around it. It appears to be in the skin fold. PELVIS: Stable. The patient does have some swelling and ecchymosis on the right groin and scrotal area. BACK: Atraumatic. EXTREMITIES: Neurovascularly intact x4. NEUROLOGIC: The patient is awake, alert, and oriented x3. Masood Coma Scale is 15. LABORATORY FINDINGS: White blood cell count 8.4, hemoglobin 12.2, hematocrit 36.5, platelets 151. Sodium 133, potassium 3.4, chloride 100, CO2 of 26, BUN 5, creatinine 0.80, glucose 98, lactic acid 0.9, lipase 4. LFTs are unremarkable. Urinalysis is unremarkable. RADIOGRAPHIC REPORTS: AP chest x-ray shows mild atelectatic change in the left lung base. CT of the abdomen with IV contrast shows postoperative changes seen on the lower right anterior abdominal wall in the right lower quadrant. These inflammatory changes indent the anterior wall of the bladder on the right and there is mild bladder wall thickening at this location. Numerous extraluminal gas pockets at this site with stranding and some fluid density, however, no loculated fluid or abscess collection is seen. Fluid within the inguinal canal with postoperative inflammatory change. ASSESSMENT AND PLAN: 1. Postop pain. 2. History of postop low-grade fever 100.3. Plan will be to admit the patient to the surgical floor under observation. Pain control, pulmonary toilet, gastritis, mechanical VTE prophylaxis. The patient will have pain control primarily with his current pain regimen. Re-exam tomorrow and repeat labs in the morning. The evaluation, examination, laboratory, and radiographic findings were discussed with Dr. Collado and also the emergency room physician had discussed it with him. Job ID: [id number]
[2019-01-14 04:46] LABS: #Eosinphils 0.1 thou/uL (0.0-0.7); #Lymphocytes 0.9 thou/uL (1.20-3.40); #Monocytes 0.6 thou/uL (0.11-0.59); #Neutrophils 5.4 thou/uL (1.40-6.50); %Basophils 0.3 % (0.0-1.0); %Eosinophils 0.9 % (0.0-10.0); %Lymphocytes 12.4 % (21.0-51.0); %Monocytes 8.1 % (0.0-10.0); %Neutrophils 78.3 % (42.0-75.0); Hemoglobin 11.6 g/dL (14.0-18.0); Mean Corpuscular Hemoglobin 30.3 pg (27.0-31.0); Mean Platelet Volume 7.6 fL (7.4-10.4); Platelet Count 143 thou/uL (130-400); RBC Distribution Width 13.4 % (11.5-14.5); Red Blood Cell (RBC) Count 3.84 mill/uL (4.70-6.10); White Blood Cell (WBC) Count 6.9 thou/uL (4.8-10.8)
[2019-01-14 05:08] LABS: Anion Gap 9 mmol/L (10-20); BUN (Urea Nitrogen) 7 mg/dL (8.4-25.7); Calc. Creatinine Clearance 150 mL/min (70-130); Calcium 8.2 mg/dL (7.8-10.44); Carbon Dioxide 26 mmol/L (22-29); Chloride 105 mmol/L (98-107); Estimated GFR-MDRD Greater than 90; Glucose 107 mg/dL (70-105); Magnesium 2.1 mg/dL (1.6-2.6); Potassium 3.7 mmol/L (3.5-5.1); Sodium 136 mmol/L (136-145)
[2019-01-14] MEDS: Ketorolac Tromethamine 30 MG/ML VIAL IVP SCH (05:21)
[2019-01-14] MEDS: Piperacillin/Tazobactam 3.375 GM in Sodium Chloride 0.9% 100 ML IVPB SCH ×2 (05:26)
[2019-01-14] MEDS ORDERED: FLU VACC QS2019-20(6MOS UP)/PF 60 MCG/0.5 ML SYRINGE IM ONE (09:00)
[2019-01-14] MEDS ORDERED: Famotidine 20 MG TAB PO SCH (09:00)
[2019-01-14] MEDS: Sodium Chloride 0.9% 1,000 ML IV SCH (09:39)
[2019-01-14 11:53] VITALS: BP 98/59; TEMP 97.4
[2019-01-14] MEDS ORDERED: Senokot S 8.6-50 MG TAB PO SCH (21:00)
[2019-01-14] MEDS ORDERED: Polyethylene Glycol 3350 17 GM Packet PO SCH (21:00)
--- NOTE | 2019-01-15 10:14 | DIS ---
DATE OF ADMISSION: 01/13/2019 DATE OF DISCHARGE: 01/14/2019 CONSULTING PHYSICIAN: None. PROCEDURE PERFORMED: None. ADMISSION DIAGNOSES: Status post right inguinal hernia repair postop day #1, pain, and possibly fever, postop low-grade fever and postop pain. DISCHARGE DIAGNOSIS: Status post right inguinal hernia repair postop day #2. HOSPITAL COURSE: Mr. Monge is a 58-year-old male, who was discharged yesterday after undergoing right inguinal hernia repair. After discharge, the patient reports pain is not well controlled and he developed possibly fever at the highest 103, reported in the emergency department. Upon arrival to the emergency department , his max temperature was 100.3 and his vital signs have been stable. Workup has been normal. White count is within normal limits. Pain resolved on observation overnight and in the morning, he reports doing better. Pain is well controlled. Vital signs stable. He has been discharged home with resume on home medication. PHYSICAL EXAMINATION: GENERAL: The patient is lying down in bed with no acute distress. VITAL SIGNS: Temperature 97.4, heart rate 68, respiratory rate 20, O2 saturation 95 on room air, blood pressure . LUNGS: Clear bilaterally. HEART: Regular rate and rhythm. ABDOMEN: Soft, nondistended. Incision of the right inguinal clean, dry, intact. Nontender to palpation. NEUROLOGY: No focal neurologic deficits. DISCHARGE DISPOSITION: Home. DISCHARGE CONDITION: Good. DISCHARGE INSTRUCTIONS: The patient is to take medication as directed. The patient is to not heavy lifting more than 20 pounds for 2 weeks. The patient is to see Dr. Tomas in 1 week. DISCHARGE MEDICATIONS: Resume all of the medication from earlier discharge. Job ID: [id number] [facility]
--- NOTE | 2019-01-21 02:14 | EKG ---
Test Reason : Blood Pressure : / mmHG Vent. Rate : 078 BPM Atrial Rate : 078 BPM P-R Int : 126 ms QRS Dur : 100 ms QT Int : 390 ms P-R-T Axes : 035 -07 027 degrees QTc Int : 444 ms Normal sinus rhythm Incomplete right bundle branch block Nonspecific ST abnormality Abnormal ECG Confirmed by KAYLEN Yusuf, VALERIA ([id number]), telegraph editor KEYUR BECKER ([id number]) on 01/21/2019 2:14:02 AM Referred By: Confirmed By:VALERIA ABDULLAHI M.D.
== END 2019-01-14 14:17 | disposition home or self-care (01) ==
LOC: ERS 18:50 → SURG A 22:41
PROVIDERS: ADMIT Surgery; ATTEND Surgery
DX: G89.18 Other acute postprocedural pain (principal); R10.31 Right lower quadrant pain; R50.82 Postprocedural fever; K80.20 Calculus of gallbladder without cholecystitis without obstruction; K44.9 Diaphragmatic hernia without obstruction or gangrene; F11.11 Opioid abuse, in remission; F15.11 Other stimulant abuse, in remission; Z87.891 Personal history of nicotine dependence; Z79.899 Other long term (current) drug therapy; Z91.02 Food additives allergy status; Z91.018 Allergy to other foods; Z98.1 Arthrodesis status; Z98.890 Other specified postprocedural states
CPT/HCPCS: 36415; 71045; 74177; 80048; 80053; 81003; 83605; 83690; 83735; 84100; 85025; 87086; 93005; 96361; 96365; 96366; 96375; 96376; G0378; J1885; J2270; J2405; J2543; J3490; Q9966

== ENCOUNTER 2020-02-19 11:12 | Emergency (ER) | payer OTHER ==
[~2020-02-19 11:12] MED LIST changes: -ISOVUE-370 76%-LOCM 1 ML ONE; +Iopamidol-370 76% 500 ML 1 ML ONE
[2020-02-19] MEDS ORDERED: Morphine 4 MG/ML VIAL ONE (12:48)
[2020-02-19] MEDS ORDERED: Ondansetron PF 4 MG/2 ML Vial ONE (12:48)
[2020-02-19 12:53] LABS: Hemoglobin 13.9 g/dL (14.0-18.0); Mean Corpuscular HGB CONC 33.3 g/dL (32.0-36.0); Mean Corpuscular Hemoglobin 29.1 pg (27.0-31.0); Mean Corpuscular Volume 87.4 fL (78.0-98.0); Mean Platelet Volume 7.3 fL (7.4-10.4); Platelet Count 139 thou/uL (130-400); RBC Distribution Width 12.7 % (11.5-14.5); Red Blood Cell (RBC) Count 4.77 mill/uL (4.70-6.10); White Blood Cell (WBC) Count 5.9 thou/uL (4.8-10.8)
[2020-02-19 13:05] LABS: ALT (SGPT) 49 U/L (8-55); AST (SGOT) 22 U/L (5-34); Albumin 3.4 g/dL (3.5-5.0); Alkaline Phosphatase 160 U/L (40-110); Anion Gap 14 mmol/L (10-20); BUN (Urea Nitrogen) 10 mg/dL (8.4-25.7); Bilirubin, Total 0.7 mg/dL (0.2-1.2); Calc. Creatinine Clearance 0 mL/min (70-130); Calcium 8.3 mg/dL (7.8-10.44); Carbon Dioxide 26 mmol/L (22-29); Chloride 101 mmol/L (98-107); Estimated GFR-MDRD Greater than 90; Globulin 3.7 g/dL (2.4-3.5); Glucose 103 mg/dL (70-105); Lipase 16 U/L (8-78); Protein, Total 7.1 g/dL (6.0-8.3); Sodium 137 mmol/L (136-145)
[2020-02-19 13:09] LABS: Band 3 % (5-11); Lymphocytes 40 % (21-51); MDiff Complete? YES; Monocytes 12 % (0-10); Neutrophil 37 % (42-75); RBC Morphology Normal; Reactive Lymphocytes 7 % (0-10)
--- NOTE | 2020-02-19 13:47 | CT ---
CT Abdomen Pelvis W Con History: Abdominal pain Comparison: CT examination November 10, 2019 Findings: Similar appearance of the triangular likely focus of scar peripheral aspect right lower lob e. No significant pericardial fluid. Markedly thickened distal esophagus with abnormal adjacent paraesophageal lymph nodes approximately 5 cm above the GE junction. Prominent diverticulum second portion duodenum. Cholelithiasis without cholecystitis. Aortoiliac contour is nonaneurysmal. Midline scar along the abdomen is similar. Prior right inguinal hernia repair. No hydronephrosis. Spleen is unremarkable along with the pancreas. No retroperitoneal periaortic rosa opathy. No hydronephrosis. Suture is noted at the sigmoid junction without adjacent wall thickening. There is also suture adjacent to the cecal apex.. Sutures also noted the mid small bowel. Small lymph nodes are noted along the ascending colon, relatively similar. No dilated loops of large or small bowel. Prior ventral hernia repair. No acute osseous abnormality. Advanced degenerative disc space disease at L5/S1 with 2 mm retrolisthe sis multiple bridging anterior osteophyte. Impression: 1. No acute inflammatory process within the abdomen or pelvis. 2. Abnormal wall thickening of the distal esophagus approximately 5 cm above the GE junction with adj acent paraesophageal lymph nodes. Upper endoscopy evaluation recommended. 3. Cholelithiasis without cholecystitis. 4. Relatively recent ventral hernia and right inguinal hernia repair.
[2020-02-19 15:14] LABS: Bilirubin Negative (Negative); Blood, Urine Negative (Negative); Clarity Clear (Clear); Glucose, Urine (Dipstick) Normal (Negative); Ketone, Urine Negative (Negative); Leukocyte Negative Leu/uL (Negative); Nitrite Negative (Negative); Protein, Urine (Dipstick) 20 mg/dL (Neg-Trace); pH, Urine 5.5 (5.0-9.0)
[2020-02-19 15:17] LABS: Specific Gravity, Urine Greater than 1.060 (1.002-1.036)
[2020-02-19] MEDS ORDERED: Morphine 2 MG/ML VIAL ONE (15:35)
== END 2020-02-19 15:51 | disposition home or self-care (01) ==
LOC: ERS 11:12
DX: K43.9 Ventral hernia without obstruction or gangrene (principal); J01.90 Acute sinusitis, unspecified; Z71.6 Tobacco abuse counseling; J44.9 Chronic obstructive pulmonary disease, unspecified; I49.3 Ventricular premature depolarization; I49.9 Cardiac arrhythmia, unspecified; Z79.891 Long term (current) use of opiate analgesic; Z79.899 Other long term (current) drug therapy
CPT/HCPCS: 74177; 80053; 81003; 83690; 85025; 96374; 96375; 96376; J2270; J2405; Q9967

== ENCOUNTER 2020-04-01 07:48 | Day surgery (SDC) | payer OTHER ==
[2020-03-31 09:34] VITALS: BMI 33.5
--- NOTE | 2020-04-01 05:41 | HP ---
HISTORY OF PRESENT ILLNESS: A 59-year-old male referred to me for evaluation of dysphagia, chronic acid reflux. The patient has history of foreign body impaction 6 years ago and underwent EGD. On the EGD he was found to have meat impaction. This was removed. He has some esophagus. This was biopsied. The biopsies were negative. The patient done well over the last several years. He has had recurrence of dysphagia over the last several years, but did not come back to for dilation. The patient has seen Dr. Tomas recently and was found to have hernia. He also has gallstones. Surgery has been planned for the above reason. He was advised to have EGD and a colonoscopy before surgery. ALLERGIES: NO DRUG ALLERGIES. MEDICAL ILLNESS: 1. PTSD. 2. Chronic acid reflux. 3. Dysphagia. 4. Ureteral stricture, status post dilation and also has had urology evaluation in the past. 5. Sleep apnea . SOCIAL HISTORY: The patient is a former smoker. Quit smoking two years ago. He also has history of alcohol abuse in the past and quit years ago. PHYSICAL EXAMINATION: VITAL SIGNS: His weight is 238 pounds, pulse is , blood pressure . EYES: Conjunctivae are clear. CARDIOVASCULAR: Normal heart sounds. LUNGS: Clear to auscultation. ABDOMEN: Soft. No organomegaly. No . ADMITTING DIAGNOSES: A 59-year-old male with dysphagia, positive family history of . He comes for 1. EGD. 2. Colonoscopy for colon cancer screening. Job ID: [id number]
[2020-04-01] MEDS ORDERED: Lidocaine 1% PF 5 ML VIAL ONE (09:38)
[2020-04-01] MEDS ORDERED: PROPOFOL 200 MG/20 ML VIAL ONE (09:38)
[2020-04-01] MEDS ORDERED: Morphine 4 MG/ML VIAL ONE (10:25)
[2020-04-01] MEDS ORDERED: Fentanyl 100 MCG/2 ML VIAL ONE (11:45)
--- NOTE | 2020-04-01 15:14 | OP ---
DATE OF PROCEDURE: 04/01/2020 OPERATIVE PROCEDURES: Colonoscopy with polypectomy, biopsy. PREOPERATIVE DIAGNOSIS: A 59-year-old male, undergoing colonoscopy for colon cancer screening. POSTOPERATIVE DIAGNOSES: 1. An 8 mm sessile rectal polyp removed with snare cautery with good hemostasis. 2. Hemorrhoids. 3. Retained stool intermittently in the colon, which was washed out. 4. Markedly hyperemic edematous ileocecal area with some ulcerations, biopsied. The patient appeared to have had colon surgery as such sigmoid colon, I could see some anastomotic area. DESCRIPTION OF PROCEDURE: The patient was placed on his left lateral position and was given sedation by Anesthesia Department. A rectal exam was done before the scope was advanced into the rectum. No lesions felt on rectal exam. A Pentax videocolonoscope was introduced into the rectum and advanced from the cecum. The patient had fecal residue intermittently in the colon. Water was . The ileocecal area, again, there was somewhat of fair amount of solid stool, which was washed out." The ileocecal area appears very polypoid, edematous, friable, and some ulcerations. Biopsy obtained of the area. Withdrawal from the cecum to ascending colon, hepatic flexure, no lesion seen. In the transverse colon, splenic flexure, descending colon, no lesion seen. The patient has had some previous colon surgery as I could see anastomotic area over the sigmoid colon area. The rectum showed a polyp, which was sessile. This was removed easily with snare. He also had hemorrhoids. Job ID: [id number]
--- NOTE | 2020-04-02 07:20 | OP ---
DATE OF PROCEDURE: 04/01/2020 OPERATIVE PROCEDURES: 1. Esophagogastroduodenoscopy with balloon dilation. 2. Biopsy. PREOPERATIVE DIAGNOSES: Dysphagia and acid reflux. POSTOPERATIVE DIAGNOSES: Tight stricture at the GE junction and esophagus with multiple ulcerations. Ulcerations are diffuse occupy the entire lumen. 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 DESCRIPTION OF PROCEDURE: The patient was placed on his left lateral position and was given sedation by Anesthesia Department. A Pentax videogastroscope under direct vision passed down the oropharynx into the distal esophagus. The upper 2/3 appeared normal. Over the distal esophagus, the patient was found to have diffuse ulcerations, mucosal friability, mucosal edema, and some mucosal sloughing. The GE junction at the lumen is very tight. The scope could not be advanced into the stomach. A Bard balloon size 15 to 18 mm placed over the GE junction and esophagus. This was inflated to only for 2 minutes and deflated. Following the dilation, there was mild mucosal friability and oozing of blood. The scope advanced in the stomach without difficulty. He had a hiatus hernia, probably measured about 3 cm. Retroflexion failed to show any pathology in fundus or cardia. The gastric body, gastric antrum, duodenal bulb, descending duodenum, no pathology. The stomach decompressed and the scope removed. DISCHARGE PLANNING: This is a 59-year-old male, who came for EGD for dysphagia and possibly a colonoscopy for colon cancer screening. He underwent EGD and was found to have severe erosive esophagitis in distal esophagus, esophageal stricture, and hiatus hernia. He underwent EGD and dilation and biopsies. Underwent colonoscopy with polypectomy. DISCHARGE RECOMMENDATION: 1. Start the patient on omeprazole 40 mg twice a day for next two weeks and then go back to 40 mg once a day. 2. He is advised to call me if he develops any chest discomfort, hematemesis, and melena. 3. To come back to clinic and probably will need another repeat dilation before the surgery. Job ID: [id number]
== END 2020-04-01 13:45 | disposition home or self-care (01) ==
LOC: SDC 07:48
PROVIDERS: ATTEND Internal Medicine Gastroenterology
PROC: 0DB58ZX Excision of Esophagus, Via Natural or Artificial Opening Endoscopic, Diagnostic (ICD-10-PCS; principal; 2020-04-01)
PROC: 0DBH8ZX Excision of Cecum, Via Natural or Artificial Opening Endoscopic, Diagnostic (ICD-10-PCS; principal; 2020-04-01)
PROC: 0DBP8ZX Excision of Rectum, Via Natural or Artificial Opening Endoscopic, Diagnostic (ICD-10-PCS; principal; 2020-04-01)
PROC: 0D758ZZ Dilation of Esophagus, Via Natural or Artificial Opening Endoscopic (ICD-10-PCS; principal; 2020-04-01)
DX: Z12.11 Encounter for screening for malignant neoplasm of colon (principal); K62.1 Rectal polyp; K63.5 Polyp of colon; K64.9 Unspecified hemorrhoids; K21.00 Gastro-esophageal reflux disease with esophagitis, without bleeding; F43.10 Post-traumatic stress disorder, unspecified; G47.30 Sleep apnea, unspecified; Z79.899 Other long term (current) drug therapy; Z87.891 Personal history of nicotine dependence; Z91.018 Allergy to other foods; Z91.048 Other nonmedicinal substance allergy status
CPT/HCPCS: 88305; 88312; 88313; J2270; J2704; J3010

== ENCOUNTER 2020-04-17 07:20 | Outpatient (CLI) | payer OTHER ==
[2020-03-28 02:04] LABS: SARS-CoV-2 MS2 Positive; SARS-CoV-2 N Gene Negative; SARS-CoV-2 S Gene Negative; SARS-CoV-2 by NAA Not Detected (NotDetected); SARS-CoV-2 orf1ab Negative
[2020-04-18 02:23] LABS: SARS-CoV-2 MS2 Positive; SARS-CoV-2 N Gene Negative; SARS-CoV-2 S Gene Negative; SARS-CoV-2 by NAA Not Detected (NotDetected); SARS-CoV-2 orf1ab Negative
== END 2020-04-17 07:21 | disposition home or self-care (01) ==
LOC: LABBT 07:20
PROVIDERS: ATTEND Internal Medicine
DX: Z01.812 Encounter for preprocedural laboratory examination (principal); Z12.11 Encounter for screening for malignant neoplasm of colon; R13.10 Dysphagia, unspecified; Z20.822 Contact with and (suspected) exposure to COVID-19
CPT/HCPCS: 87635; U0003

== ENCOUNTER 2020-04-22 07:38 | Day surgery (SDC) | payer OTHER ==
[2020-04-18 12:26] VITALS: BMI 33.3
--- NOTE | 2020-04-21 11:31 | HP ---
HISTORY OF PRESENT ILLNESS: This is a 59-year-old male, who comes to the EGD because of dysphagia and recent findings of esophageal stricture. The patient's EGD was done 2 weeks ago and was found to have severe erosive esophagitis and a very tight stricture. He underwent balloon dilation. His symptoms improved, but he still has dysphagia off and on. The patient was found to have gallstone and Dr. Tomas has planned a laparoscopic cholecystectomy. The patient comes for EGD and dilation because of dysphagia and esophageal stricture. ALLERGIES: NONE. MEDICAL ILLNESSES: 1. Colon polyp. 2. Reflux esophagitis. 3. Chronic reflux. 4. Hiatus hernia. PHYSICAL EXAMINATION: VITAL SIGNS: Pulse is 70, blood pressure 130/70. HEENT: Conjunctivae are clear. CARDIOVASCULAR SYSTEM: Normal heart sounds. LUNGS: Clear to auscultation. ABDOMEN: Soft. Abdomen is nontender. No organomegaly. No masses. Bowel sounds normal. ADMITTING DIAGNOSES: 1. Erosive esophagitis. 2. Esophageal stricture, status post dilation. 3. Hiatus hernia. 4. Sleep apnea. 5. Posttraumatic stress disorder. 6. Gallstone. PLAN: EGD and dilation. The patient will probably have a laparoscopic cholecystectomy at the same time. Job ID: [id number]
[2020-04-22] MEDS ORDERED: EPINEPHrine 1 MG/ML AMP ONE (07:54)
[2020-04-22] MEDS ORDERED: Bupivacaine PF 0.5% 30 ML VIAL ONE (07:54)
[2020-04-22] MEDS ORDERED: Scopolamine 1.5 mg/72 hour Patch ONE (08:08)
[2020-04-22] MEDS ORDERED: Acetaminophen 500 MG TAB ONE (08:08)
[2020-04-22] MEDS ORDERED: Ketorolac Tromethamine 30 MG/ML VIAL ONE (08:08)
[2020-04-22] MEDS ORDERED: Fentanyl 250 MCG/5 ML VIAL ONE (08:20)
[2020-04-22] MEDS ORDERED: Lidocaine 1% PF 5 ML VIAL ONE (10:50)
[2020-04-22] MEDS ORDERED: Ondansetron PF 4 MG/2 ML Vial ONE (10:50)
[2020-04-22] MEDS ORDERED: Dexamethasone 20 MG/5 ML VIAL ONE (10:50)
[2020-04-22] MEDS ORDERED: Rocuronium Bromide 10 MG/ML (10ML VIAL) ONE (10:50)
[2020-04-22] MEDS ORDERED: Glycopyrrolate 0.2 MG/ML 5 ML SYRINGE ONE (10:50)
[2020-04-22] MEDS ORDERED: PROPOFOL 200 MG/20 ML VIAL ONE (10:50)
[2020-04-22] MEDS ORDERED: Fentanyl 100 MCG/2 ML VIAL ONE ×2 (11:20→11:52)
--- NOTE | 2020-04-22 12:54 | OP ---
DATE OF PROCEDURE: 04/22/2020 PREOPERATIVE DIAGNOSES: Chronic cholecystitis, cholelithiasis, esophageal stricture, small hiatal hernia. POSTOPERATIVE DIAGNOSES: Chronic cholecystitis, cholelithiasis, esophageal stricture, small hiatal hernia. PROCEDURE PERFORMED: Laparoscopic video cholecystectomy. Note under the same anesthesia, Dr. Willoughby will perform a second-stage esophageal dilatation. ANESTHESIA: General, local 0.5% Marcaine 30 mL, mixed with 1% Xylocaine with epinephrine 20 mL. DESCRIPTION OF PROCEDURE: The patient was taken to the operating room, where under general anesthesia, the abdomen was prepared with ChloraPrep and draped in routine fashion. Local anesthetic mixture was infiltrated into the skin and subcutaneous tissue about each port site. Right subcostal midclavicular incision was made. Pneumoperitoneum to 15 mmHg obtained with a Veress needle, replaced with a 5 port, video laparoscope inserted. An adhesion free area in the right lower mid abdomen, an incision was made and a 5 port placed and video laparoscope moved to this port site. Right lateral subcostal incision was made and 5 port placed. Right subxiphoid incision was made and 11 port placed. Liver appeared to be normal. There were small bowel adhesions to the midline. Omental adhesions umbilicus. The fundus of the gallbladder grasped and retracted cephalad. Infundibulum grasped and retracted laterally. Cystic artery and duct dissected free. Critical view obtained. Cystic artery and duct doubly clipped proximally, divided. Gallbladder dissected free from liver bed obtaining good hemostasis prior to division of final peritoneal attachments. Gallbladder and contents removed, submitted to Pathology. Good hemostasis assured with cautery. Irrigant and pneumoperitoneum evacuated. All instruments were removed, and all skin incisions were approximated with subdermal 4-0 Monocryl and [place] glue applied. The patient was then transferred to the endoscopy suite, where Dr. Willoughby will complete second-stage esophageal stricture dilatation. Job ID: [id number]
[2020-04-22] MEDS ORDERED: HYDROcodone/Acetaminophen 5/325 mg Tablet ONE (13:42)
--- NOTE | 2020-04-22 13:53 | OP ---
DATE OF PROCEDURE: 04/22/2020 OPERATIVE PROCEDURES: 1. Esophagogastroduodenoscopy. 2. Balloon dilation of the esophageal stricture to stage I and stage II with a balloon size 15 to 18 mm. PREOPERATIVE DIAGNOSES: Erosive esophagitis, esophageal stricture, status post dilation two weeks ago. POSTOPERATIVE DIAGNOSES: Diffuse ulcerations over the distal esophagus with a stricture. The stricture actually closed back and tight again within two weeks. The scope could not be advanced past the stricture initially, but after dilation of the stricture with a balloon size 15 to 18 mm, the scope could be advanced. DESCRIPTION OF PROCEDURE: The patient was already had lap latoya, was intubated and was given sedation by Anesthesia Department. The patient was turned on his left lateral position and Pentax videogastroscope under direct vision passed down the oropharynx past the GE junction. At the GE junction, the patient had a stricture, which was normal during the two weeks ago. The stricture has been closed back again within two weeks. The scope could not be advanced past the stricture into the stomach. The patient has diffuse confluent ulcerations over the distal esophagus. A Bard balloon size 15 to 18 mm placed over the GE junction under endoscopic guidance. The balloon was inflated at stage I for 2 minutes and then at stage II for 2 minutes. Following dilation, there was an appropriate mucosal tear seen at the GE junction. The scope was used to advance in the stomach without much difficulty. Retroflexion failed to show any pathology in the fundus or cardia except for mild oozing of blood from the dilation. Gastric body, gastric antrum, and duodenum, no pathology. The scope was carefully withdrawn and there was a mucosal tear at the GE junction at the site of stricture seen. No complication noted. The stomach decompressed and the scope removed. DISCHARGE PLANNING: This is a 59-year-old male with dysphagia, previously diagnosed esophageal stricture. He had dilation two weeks ago. Surprisingly, the stricture seems to close back again as the scope could not be advanced past into the stomach. Underwent dilation with a balloon size 15 and 16 mm. DISCHARGE RECOMMENDATION: 1. The patient advised to continue PPI as before. 2. To come back to clinic in 2 weeks. Job ID: [id number]
== END 2020-04-22 16:00 | disposition home or self-care (01) ==
LOC: SDC 07:38
PROVIDERS: ATTEND Internal Medicine Gastroenterology
PROC: 0D758ZZ Dilation of Esophagus, Via Natural or Artificial Opening Endoscopic (ICD-10-PCS; principal; 2020-04-22)
PROC: 0FT44ZZ Resection of Gallbladder, Percutaneous Endoscopic Approach (ICD-10-PCS; 2020-04-22)
DX: K80.10 Calculus of gallbladder with chronic cholecystitis without obstruction (principal); K22.2 Esophageal obstruction; K22.10 Ulcer of esophagus without bleeding; K44.9 Diaphragmatic hernia without obstruction or gangrene; K21.00 Gastro-esophageal reflux disease with esophagitis, without bleeding; G47.30 Sleep apnea, unspecified; F43.10 Post-traumatic stress disorder, unspecified; Z91.018 Allergy to other foods
CPT/HCPCS: 88304; J0171; J0690; J1100; J1885; J2405; J2704; J3010; J7620; S0020

== ENCOUNTER 2020-10-06 09:23 | Outpatient (CLI) | payer OTHER ==
[2020-10-06] MEDS ORDERED: Iopamidol 370 76% 100 ML VIAL ONE (09:25)
[2020-10-06 09:56] LABS: Estimated GFR-MDRD - POC Greater than 90
== END 2020-10-06 09:24 | disposition home or self-care (01) ==
LOC: CT 09:23
PROVIDERS: ATTEND Internal Medicine Gastroenterology
DX: C15.9 Malignant neoplasm of esophagus, unspecified (principal); K21.9 Gastro-esophageal reflux disease without esophagitis; K20.90 Esophagitis, unspecified without bleeding; K44.9 Diaphragmatic hernia without obstruction or gangrene; K22.8 Other specified diseases of esophagus; Z90.49 Acquired absence of other specified parts of digestive tract
CPT/HCPCS: 71260; 74160; 82565; Q9967

== ENCOUNTER 2020-10-08 09:34 | Emergency (ER) | payer OTHER ==
[2020-10-08] MEDS ORDERED: Vancomycin 1.5 GRAM/300 ML BAG 1.5 GM in Premix Bag 1 BAG IVPB SCH (11:15)
[2020-10-08] MEDS ORDERED: Morphine 4 MG/ML VIAL ONE (11:46)
[2020-10-08] MEDS ORDERED: Cefepime 2 GM VIAL ONE (11:47)
[2020-10-08 11:49] LABS: #Eosinphils 0.2 thou/uL (0.0-0.7); #Monocytes 0.6 thou/uL (0.11-0.59); #Neutrophils 5.5 thou/uL (1.40-6.50); %Basophils 0.2 % (0.0-1.0); %Eosinophils 1.9 % (0.0-10.0); %Lymphocytes 23.9 % (21.0-51.0); %Monocytes 7.7 % (0.0-10.0); %Neutrophils 66.2 % (42.0-75.0); Hemoglobin 13.6 g/dL (14.0-18.0); Mean Corpuscular HGB CONC 32.7 g/dL (32.0-36.0); Mean Corpuscular Hemoglobin 29.7 pg (27.0-31.0); Mean Platelet Volume 6.8 fL (7.4-10.4); Platelet Count 184 thou/uL (130-400); RBC Distribution Width 12.5 % (11.5-14.5); Red Blood Cell (RBC) Count 4.56 mill/uL (4.70-6.10); White Blood Cell (WBC) Count 8.2 thou/uL (4.8-10.8)
[2020-10-08 12:12] LABS: ALT (SGPT) 29 U/L (8-55); AST (SGOT) 21 U/L (5-34); Albumin 3.8 g/dL (3.5-5.0); Alkaline Phosphatase 129 U/L (40-110); Anion Gap 11 mmol/L (10-20); BUN (Urea Nitrogen) 11 mg/dL (8.4-25.7); Bilirubin, Total 0.5 mg/dL (0.2-1.2); Calc. Creatinine Clearance 0 mL/min (70-130); Calcium 8.7 mg/dL (7.8-10.44); Carbon Dioxide 26 mmol/L (22-29); Chloride 103 mmol/L (98-107); Globulin 3.4 g/dL (2.4-3.5); Protein, Total 7.2 g/dL (6.0-8.3); Sodium 136 mmol/L (136-145)
[2020-10-08 12:19] LABS: Glucose 59 mg/dL (70-105)
== END 2020-10-08 15:05 | disposition short-term general hospital (02) ==
LOC: ERS 09:34
DX: L03.113 Cellulitis of right upper limb (principal); J44.9 Chronic obstructive pulmonary disease, unspecified; Z87.891 Personal history of nicotine dependence; Z79.899 Other long term (current) drug therapy
CPT/HCPCS: 36415; 36416; 80053; 83605; 85025; 87040; 94760; 96365; 96366; 96367; 96375; J0692; J2270; J3370

== ENCOUNTER 2020-10-27 12:35 | Emergency (ER) | payer OTHER | END 2020-10-27 16:08 | disposition home or self-care (01) | LOC: ERS 12:35 | DX: T78.2XXA Anaphylactic shock, unspecified, initial encounter (principal); L50.0 Allergic urticaria; J44.9 Chronic obstructive pulmonary disease, unspecified; Z87.891 Personal history of nicotine dependence | CPT/HCPCS: 36415; 80053; 85025; 93005; 96372; 96374; 96375; J0171; J1200; J2930; S0028 ==

== ENCOUNTER 2020-11-27 07:23 | Outpatient (CLI) | payer OTHER | END 2020-11-27 07:24 | disposition home or self-care (01) | LOC: RAD 07:23 | PROVIDERS: ATTEND Surgery | DX: K21.00 Gastro-esophageal reflux disease with esophagitis, without bleeding (principal); K44.9 Diaphragmatic hernia without obstruction or gangrene | CPT/HCPCS: 74246 ==

== ENCOUNTER 2020-12-08 08:52 | Outpatient (CLI) | payer OTHER | END 2020-12-08 08:53 | disposition home or self-care (01) | LOC: BICRAD 08:52 | PROVIDERS: ATTEND Internal Medicine Pulmonary Disease | DX: R06.00 Dyspnea, unspecified (principal) | CPT/HCPCS: 71046 ==

== ENCOUNTER 2021-03-17 10:42 | Emergency (ER) | payer OTHER ==
[2021-03-17 11:21] LABS: #Eosinphils 0.2 thou/uL (0.0-0.7); #Lymphocytes 2.5 thou/uL (1.20-3.40); #Monocytes 0.6 thou/uL (0.11-0.59); #Neutrophils 2.4 thou/uL (1.40-6.50); %Basophils 0.1 % (0.0-1.0); %Eosinophils 3.4 % (0.0-10.0); %Lymphocytes 43.7 % (21.0-51.0); %Monocytes 9.8 % (0.0-10.0); Mean Corpuscular HGB CONC 33.5 g/dL (32.0-36.0); Mean Corpuscular Hemoglobin 29.2 pg (27.0-31.0); Mean Corpuscular Volume 86.9 fL (78.0-98.0); Platelet Count 197 thou/uL (130-400); RBC Distribution Width 12.4 % (11.5-14.5); Red Blood Cell (RBC) Count 4.11 mill/uL (4.70-6.10); White Blood Cell (WBC) Count 5.7 thou/uL (4.8-10.8)
[2021-03-17 11:42] LABS: ALT (SGPT) 16 U/L (8-55); AST (SGOT) 9 U/L (5-34); Albumin 3.3 g/dL (3.5-5.0); Alkaline Phosphatase 122 U/L (40-110); Anion Gap 10 mmol/L (10-20); BUN (Urea Nitrogen) 7 mg/dL (8.4-25.7); Bilirubin, Total 0.6 mg/dL (0.2-1.2); Calc. Creatinine Clearance 0 mL/min (70-130); Calcium 8.2 mg/dL (7.8-10.44); Carbon Dioxide 26 mmol/L (22-29); Chloride 105 mmol/L (98-107); Globulin 3.7 g/dL (2.4-3.5); Glucose 95 mg/dL (70-105); Lipase 24 U/L (8-78); Potassium 3.3 mmol/L (3.5-5.1); Sodium 138 mmol/L (136-145)
[2021-03-17] MEDS ORDERED: Ondansetron PF 4 MG/2 ML Vial ONE ×2 (12:16→17:44)
[2021-03-17] MEDS ORDERED: MD-Gastroview 120 ML BOT ONE (14:02)
[2021-03-17] MEDS ORDERED: Morphine 4 MG/ML VIAL ONE (14:53)
[2021-03-17] MEDS ORDERED: Mag-Al 1200 mg/1200 mg/30 ML UDCUP ONE (17:43)
[2021-03-17] MEDS ORDERED: Pantoprazole 40 MG VIAL ONE (17:43)
[2021-03-17] MEDS ORDERED: Lidocaine Viscous Sol 2% 15 ml UD Cup ONE (17:43)
== END 2021-03-17 18:55 | disposition home or self-care (01) ==
LOC: ERS 10:42
DX: K21.9 Gastro-esophageal reflux disease without esophagitis (principal); J44.9 Chronic obstructive pulmonary disease, unspecified; Z79.899 Other long term (current) drug therapy
CPT/HCPCS: 36415; 74018; 74220; 80053; 83605; 83690; 85025; 96374; 96375; 96376; C9113; J2270; J2405; Q9963

== ENCOUNTER 2021-11-23 10:45 | Outpatient (CLI) | payer BC ==
[2021-11-23 12:33] LABS: Hemoglobin 11.3 g/dL (13.5-17.5); Mean Corpuscular Hemoglobin 24.7 pg (27.0-33.0); Mean Corpuscular Volume 79.9 fl (81.2-95.1); Mean Platelet Volume 9.8 fl (7.4-10.4); Platelet Count 214 10x3/uL (150-450); RBC Distribution Width 15.3 % (11.5-14.5); Red Blood Cell (RBC) Count 4.57 10x6/uL (4.32-5.72); White Blood Cell (WBC) Count 5.9 10x3/uL (3.5-10.5)
[2021-11-23 12:35] LABS: INR-International Normal Ratio 0.9; PTT 25.2 sec (22.0-33.0); Prothrombin Time 10.1 sec (9.5-12.1)
[2021-11-23 12:45] LABS: Anion Gap 11 mmol/L (10-20); BUN (Urea Nitrogen) 9 mg/dL (8.4-25.7); Calc. Creatinine Clearance 0 mL/min (70-130); Calcium 8.5 mg/dL (7.8-10.44); Carbon Dioxide 25 mmol/L (22-29); Chloride 108 mmol/L (98-107); Estimated GFR 101; Glucose 86 mg/dL (70-105); Potassium 4.1 mmol/L (3.5-5.1); Sodium 140 mmol/L (136-145)
[2021-11-23 12:53] LABS: Bilirubin Neg (Negative); Blood, Urine 10 (Negative); Clarity Clear (Clear); Glucose, Urine (Dipstick) 250 mg/dL (Negative); Ketone, Urine 5 mg/dL (Negative); Leukocyte 25 (Negative); Nitrite Negative (Negative); Protein, Urine (Dipstick) 30 mg/dl (Neg-Trace); Specific Gravity, Urine 1.025 (1.002-1.036)
[2021-11-23 13:10] LABS: Bacteria/HPF None Seen HPF (None Seen); Mucous/LPF 2+ LPF (<2+); RBC/HPF 0-3 HPF (0-3); Squamous Epithelial 0-3 HPF (0-3); WBC/HPF 0-3 HPF (0-3)
== END 2021-11-23 10:46 | disposition home or self-care (01) ==
LOC: LABBT 10:45
PROVIDERS: ATTEND Urology
DX: Z01.818 Encounter for other preprocedural examination (principal); N35.011 Post-traumatic bulbous urethral stricture; K22.2 Esophageal obstruction; I27.20 Pulmonary hypertension, unspecified; G89.29 Other chronic pain; Z20.822 Contact with and (suspected) exposure to COVID-19
CPT/HCPCS: 80048; 81001; 85027; 85610; 85730; 87086; 87811; 93005; 93010

== ENCOUNTER 2021-11-26 09:34 | Day surgery (SDC) | payer BC ==
[2021-11-25 10:19] VITALS: BMI 33.5
[2021-11-26] MEDS ORDERED: Ioversol 68 % 50 ML VIAL ONE (10:48)
[2021-11-26] MEDS ORDERED: fentaNYL Citrate/PF 100 MCG/2 ML SYRINGE ONE (12:47)
[2021-11-26] MEDS ORDERED: Levofloxacin 500 mg/D5W 100 ml Premix Bag ONE (12:56)
[2021-11-26] MEDS ORDERED: Lidocaine 1% PF 5 ML VIAL ONE (13:20)
[2021-11-26] MEDS ORDERED: PROPOFOL 200 MG/20 ML VIAL ONE (13:20)
[2021-11-26] MEDS ORDERED: Dexamethasone 20 MG/5 ML VIAL ONE (13:20)
[2021-11-26] MEDS ORDERED: Ondansetron PF 4 MG/2 ML Vial ONE (13:20)
[2021-11-26] MEDS ORDERED: Morphine 2 MG/ML VIAL ONE (14:31)
[2021-11-26] MEDS ORDERED: Albuterol Sulfate 2.5 mg/3 ml Neb ONE (14:42)
== END 2021-11-26 16:08 | disposition home or self-care (01) ==
LOC: SDC 09:34
PROVIDERS: ATTEND Urology
PROC: 0TJB8ZZ Inspection of Bladder, Via Natural or Artificial Opening Endoscopic (ICD-10-PCS; principal; 2021-11-26)
PROC: BT0BZZZ Plain Radiography of Bladder and Urethra (ICD-10-PCS; principal; 2021-11-26)
DX: N35.011 Post-traumatic bulbous urethral stricture (principal); K21.9 Gastro-esophageal reflux disease without esophagitis; F10.11 Alcohol abuse, in remission; Z79.899 Other long term (current) drug therapy; Z91.018 Allergy to other foods; Z91.048 Other nonmedicinal substance allergy status
CPT/HCPCS: 51610; 74450; 76999; J1100; J1956; J2270; J2405; J2704; J7611; Q9967